=== PATIENT | female | born 1975 | race African-American/Black ===

== ENCOUNTER 2019-11-25 15:04 | Emergency (ER) | payer MEDICAID, SELFPAY ==
[2019-11-25 15:04] VITALS: BP 140/71; PULSE 74; RESP 16; TEMP 36.9; O2SAT 100; BMI 35.4
--- NOTE | 2019-11-25 15:28 | ED.DCSUM_ITS ---
- ER Visit Summary Date of Service: 11/25/19 Chief Complaint: [Back pain] History of Present Illness: The patient is a 44 F [presents to the emergency department complaint of back pain that started about 12 days ago. Patient denies any injury to her back. Patient states that the pain is severe especially in the morning and worse with certain movements. Patient denies any urinary symptoms. She denies any change in bowel bladder function. She denies any pain rating down her legs. She denies any weakness in extremities. Patient has had back pain issues in the past but has never lasted this long. Patient denies any fevers. She denies any IV drug use.] Physical Examination: [HEENT-PERRLA, EOMI. Cranial nerves II through XII grossly intact. TMs clear. Mucous membranes moist. No adenopathy. Cardiovascular-regular rate and rhythm without murmur or ectopy Lungs-clear to auscultation, chest wall stable without crepitus or subcu emphysema Abdomen-normoactive bowel sounds, soft, nontender, no rebound or rigidity, no peritoneal signs. Back exam-patient has diffuse tenderness over the lumbar spine. There is no ecchymosis or bruising. No bony step-offs. There is no erythema or warmth. No crepitus. Patient has negative straight leg raises. Deep tendon reflexes are plus 2 out of 4 bilaterally at the patella and Achilles. Patient has normal 5 extension. Patient has normal sensation to light touch. Extremities-intact ?4, normal range of motion, normal pulses, atraumatic] Test Results: [X-rays of the lumbar spine were obtained which showed stable degenerative changes but no fractures or dislocations.] Emergency Department Course and Treatment: [Patient was medicated with Dilaudid, Norflex, and Toradol] Treatment Plan: [Patient will be given a prescription for Flexeril, Naprosyn, and [place]. Patient referred back to her primary care physician for follow-up within next 5 to 7 days.] Disposition: [Discharged home in stable condition] Impression: [Back pain] This note was generated with [email or web address] dictation software. It may contain incorrect words, spelling, and punctuation that were not noted in review of the chart prior to signing ED Disposition - Plan for ED Patient: Referrals: Kaila Mccarthy MD [Primary Care Provider] -
[2019-11-25] MEDS: Ketorolac 60 MG/2 ML Vial IM (15:35)
[2019-11-25] MEDS: Orphenadrine 60 MG/2 ML Ampul IM (15:35)
[2019-11-25] MEDS: HYDROmorphone 1 MG/ML Syringe IM (15:36)
--- NOTE | 2019-11-25 15:45 | RAD_ITS ---
STUDY: X-RAY - LUMBAR SPINE REASON FOR EXAM: Female, 44 years old. Pain TECHNIQUE: 3 view(s) of the lumbar spine were obtained. COMPARISON: None FINDINGS: There is no evidence of fracture or dislocation in the lumbar spine. The vertebral body heights are well-maintained. There are moderate degenerative changes in the lower lumbar spine which are stable when compared with the abdominal CT dated 10/03/2017. RAD/Lumbar Spine 2 or 3 Views IMPRESSION: No fracture or dislocation in the lumbar spine. Moderate degenerative changes in the lower lumbar spine which are stable when compared with the abdominal CT dated 10/03/2017. Electronically Signed: Elbert Manuel, at 16:08 EST Tel , Service support ,
--- NOTE | 2019-11-25 16:27 | DCINST.ED_ITS ---
ED Disposition - Plan for ED Patient: Instructions: BACK SPASM, No Trauma, BACK AND NECK PAIN, General Prescriptions: cycloBENZAPRine HCl [Flexeril] 10 mg PO TID PRN #20 tab PRN Reason: Muscle Spasm Transmission Status: Pending to [facility] [address] Naproxen [Naprosyn] 500 mg PO BID PRN #20 tab Transmission Status: Pending to [facility] [address] Hydrocodone Bitart/Apap 5-325 [[place] 5MG-325MG] 1 tablet PO Q4H PRN PRN 2 Days #14 tablet PRN Reason: Pain Transmission Status: Received by [facility] SCHNE[facility] Referrals: Kaila Mccarthy MD [Primary Care Provider] - 5-7 Days
[2019-11-25 16:35] VITALS: BP 104/90; PULSE 63
== END 2019-11-25 16:37 | disposition home or self-care (01) ==
LOC: ED 15:41
PROVIDERS: Emergency Provider Emergency Medicine; Family Provider Internal Medicine; PCP Internal Medicine
DX: M54.5 Low back pain (principal); Z72.0 Tobacco use
CPT/HCPCS: 72100; 96372; 99282

== ENCOUNTER 2019-12-27 05:25 | Day surgery (SDC) | payer MEDICAID, SELFPAY ==
--- NOTE | 2019-12-26 11:58 | HP.PCM_ITS ---
History and Physical Date of Admission: 12/26/19 Donna Woodsonntosh Physician OFFICE SERVICES CLERK H&P Signed Encounter Date: 12/18/2019 Expand All Collapse All Hide copied text Hover for details Template added by Donna Neyrobertt Elias at 12/18/2019 12:08 PM Added by Donna Neyrobertt Elias at 12/18/2019 12:08 PM Template added by Donna Sextonyrobertt Elias at 12/18/2019 12:08 PM Template added by Donna Neyrobertt Elias at 12/18/2019 12:08 PM Template added by Donna Neyrobertt Elias at 12/18/2019 12:08 PM Template added by Donna Sextonyrobertt Elias at 12/18/2019 12:08 PM Template added by Donna Neyrobertt Elias at 12/18/2019 12:08 PM Template added by Donna Sextonyrobertt Elias at 12/18/2019 12:08 PM Added by Donna Neyrobertt Elias at 12/18/2019 12:08 PM Added by Donna Neyrobertt Elias at 12/18/2019 12:08 PM Added by Donna Neyrobertt Elias at 12/18/2019 12:08 PM Added by Donna Neyrobertt Elias at 12/18/2019 12:08 PM Template added by Donna Neyrobertt Elias at 12/18/2019 12:08 PM Added by Donna Neyhart Elias at 12/18/2019 12:08 PM Added by Donna Neyhart Elias at 12/18/2019 12:08 PM Added by Donna Neyhart Elias at 12/18/2019 12:08 PM Added by Donna Neyhart Elias at 12/18/2019 12:08 PM Added by Donna Neyhart Elias at 12/18/2019 12:08 PM Added by Donna Neyrobertt Elias at 12/18/2019 12:08 PM Added by Donna Neyrobertt Elias at 12/18/2019 12:08 PM Added by Donna Elias at 12/18/2019 12:08 PM Copied by Donna Elias at 12/18/2019 12:13 PM from inside the chart Template added by Donna Elias at 12/18/2019 12:08 PM Template added by Donna Elias at 12/18/2019 12:08 PM Savi Guo is a 44 year old female who presents for?Chronic Pelvic pain, AUB, suspect adenomyosis s/p Ablation and tubal ligation. Pt reports pain is severe, and lately bleeding has become longer and more irregular. Bleeding now for 7+days and severe pelvic cramping/lower back pain. Pt would like to proceed with TLH, b/l salpingectomy, cystoscopy.? ? PAST MEDICAL HISTORY PAST MEDICAL HISTORY Diagnosis Date ? Anemia ? ? Anxiety ? ? Depression ? ? Encounter for insertion or removal of intrauterine contraceptive device 02/24/2009 ? Mirena INSERTION AND REMOVAL ? Tobacco use disorder age 16 ? Tuberculin test reaction 1999 ? CXR negative at [facility], and to date (through 2003) ? PAST SURGICAL HISTORY PAST SURGICAL HISTORY Procedure Laterality Date ? D&C AFTER DELIVERY ? 2003 ? EAb at 12 weeks ? D&C, DIAG AND/OR THERAPEUTIC ? age 16 ? SAb at 5months ? EXTRACTION, ERUPTED TOOTH OR EXPOSED ROOT (ELEVATION AND/OR FORCEPS REMOVAL) ? 2006 ? wisdom teeth ? IUD INSERTION (WHEEL TUNER DEPT)_*FL ? 02/24/2009 ? Mirena ? LIGATE FALLOPIAN TUBE ? 2010 ? Tubal ligation ? NOVASURE ? 07/13/2016 ? REMOVAL OF TONSILS,<12 Y/O ? age 7 ? Tonsillectomy ? REMOVE INTRAUTERINE DEVICE ? 07/10/2009 ? Mirena ? FAMILY HISTORY FAMILY HISTORY Problem Relation Age of Onset ? Arthritis Mother ? ? Hypertension Maternal Grandmother ? ? Diabetes Maternal Grandmother ? ? Diabetes Maternal Uncle ? ? SOCIAL HISTORY Social History ? Tobacco Use ? Smoking status: Current Every Day Smoker ? ? Years: 15.00 ? ? Types: Cigars ? Smokeless tobacco: Never Used ? Tobacco comment: smokes 2-3 cigars daily Substance Use Topics ? Alcohol use: Yes ? ? Comment: Occasionally ?(few times a month),NOT WHILE ? Drug use: No ? CURRENT MEDICATIONS Current Outpatient Medications Medication Sig ? cyclobenzaprine (FLEXERIL) 5 mg tablet take 1 tablet by mouth three times a day if needed ? ibuprofen (MOTRIN) 600 mg tablet Take 1 tablet by mouth every 6 hours as needed. FOR PAIN. ? albuterol HFA (PROAIR HFA) 90 mcg/actuation inhaler Inhale 2 Puffs as instructed every 6 hours as needed. ? ferrous sulfate 325 mg (65 mg iron) tablet Take 1 tablet by mouth twice daily with meals. ? folic acid 400 mcg tablet Take 1 tablet by mouth once daily. ? cholecalciferol, Vitamin D3, (VITAMIN D3) 50,000 unit cap capsule Take 1 capsule by mouth once each week. ? VITAMIN E, DL,TOCOPHERYL ACET, (VITAMIN E, DL, ACETATE,) 400 unit capsule Take 400 Units by mouth once daily. ? Ascorbic Acid (VITAMIN C) powd Take 1 teaspoonful by mouth once daily. ? DOC-Q-LACE 100 mg capsule take 1 capsule by mouth twice a day ? HYDROXYZINE HCL ORAL Take ?by mouth. ? Hawwyxzwzojatmf-Rezyldzaz-IY (BROMFED DM) 2-30-10 mg/5 mL syrup Take 10 mL by mouth four times daily as needed. (Patient not taking: Reported on 11/20/2019 ) ? tolterodine ER (DETROL LA) 4 mg 24 hr capsule Take 1 capsule by mouth once daily. (Patient not taking: Reported on 11/20/2019 ) ? fluticasone (FLONASE) 50 mcg/actuation nasal spray Use 2 Sprays in each nostril once daily. Rinse mouth after use. ? ibuprofen (MOTRIN) 600 mg tablet Take 1 tablet by mouth every 6 hours as needed for Pain. (Patient not taking: Reported on 11/20/2019 ) ? gabapentin (NEURONTIN) 300 mg capsule Take 1 capsule by mouth daily at bedtime for 30 days. ? MULTIVITAMIN ORAL Take 1 tablet by mouth once daily. ? lamoTRIgine (LAMICTAL) 100 mg tablet Take 1 tablet by mouth once daily. (Patient not taking: Reported on 11/20/2019 ) ? No current facility-administered medications for this visit.? ? Allergies As of Date: 12/18/2019 Allergen ?Noted ?Reaction MORPHINE ?01/13/2010 ?Shortness of Breath SEASONAL ALLERGIES ?01/13/2010 ? ? Fully Assessed ?12/18/2019 ? ? REVIEW OF SYSTEMS Abdomen:?+ pain? Bladder:?no dyusira?.. Expanded ROS:?GENERAL:?Negative for?fever Allergies and current medication updated:Yes ? EXAM:?BP 118/80 Ht 5' 6 (1.68m) Wt 220 lb (99.8kg) BMI 35.53 kg/(m^2).? GENERAL:?pleasant,??female in no apparent distress HEENT:?Normocephalic, atraumatic, mucus membranes moist and no lesions NECK:?Supple and full range of motion DERMATOLOGY:?Normal and without lesions NEURO:?alert and oriented x3,exam grossly non-focal EXTREMITIES:?normal ? Report Summary: Overall impression: The uterus is bulky appearing, which is a non-specific finding. There is a 2 cm intramural fibroid present. The endometrial thickness measures 7.3 mm, and there is a possible polyp present. Bilateral ovaries are normal appearing. There is no free fluid in the pelvic CDS. Recommendations / therapy: Bulky appearing uterus. Possible endometrial polyp. Clinical correlation recommended. Indication: Abnormal Uterine Bleeding. History: Last menstrual period: 10/23/2019. 31th day of cycle. Gynecological History: Past gynecological operations: ablation 2015. Gynecological Ultrasonography: Uterus: normal, retroverted. Size: Longitudinal 82 mm. Anterio- posterior 64 mm. Transverse 69 mm. Volume: 189.6 ml. ? Myometrium: The following features were observed in the myometrium suggestive of adenomyosis. Fibroids: Fibroid 1: Size: 24 mm x 23 mm x 23 mm. Position: left lateral wall. Endometrium: endometrium clearly visualized. Endometrium thickness total: 7.3 mm. Endometrial polyps: 14 mm x 7 mm x 7 mm. Right Ovary: normal. Visible. Morphology: normal morphology. Right Ovary size: 19 mm x 14 mm x 16 mm. Volume: 2.2 ml. Left Ovary: normal. Visible. Morphology: normal morphology. Left Ovary size: 25 mm x 22 mm x 19 mm. Volume: 5.5 ml. Cul de Sac / Pouch of Shad: no free fluid visible. Method: transvaginal ultrasound, color Doppler, 2 D, 3 D. Performed by:Debora Peralta RDMS Read by:Viktoriya Marino M.D. ? ASSESSMENT AND PLAN:?? Encounter Diagnosis ? ? ICD-10-CM ? 1. Abnormal uterine bleeding (AUB) N93.9 ? 2. Chronic pelvic pain in female R10.2 ? ? G89.29 ? 3. Adenomyosis N80.0 ? ? 4.?Pt has been counseled on risks/benefits and alternatives of surgery including but not limited to anesthesia, bleeding, infection, injury to pelvic structures including bowel, bladder, ureters and vessels. ?Pt wishes to proceed with surgery at this time. ? 5. Reviewed with patient that possible pelvic pain/lower back pain may persist after surgery however I feel it is strongly associated with uterus- I suspect adenomyosis 6. Previous tubal and Ablation performed7. ERAS protocol reviewed- will likely stay over until Tuesday based on patient preference.? ? Donna Arreguin MD ?
[2019-12-27] VITALS (15 sets, daily range): BP systolic 105–133; BP diastolic 59–83; PULSE 46–83; RESP 16–18; TEMP 35.7–36.8; O2SAT 98–100; BMI 35.8; BMI 35.6
[2019-12-27 06:04] LABS: Hematocrit 38.8 % (37-47); Hemoglobin 12.8 g/dL (12.0-15.0); Mean Corpuscular Hgb 29.6 pg (27.0-32.0); Mean Corpuscular Volume 89.8 fL (81-99); Mean Platelet Vol. 8.4 fl (6.2-12.0); Platelet Count 339 K/mm3 (150-450); RBC Distribution Width CV 12.5 % (11.6-14.6); RBC Distribution Width SD 41.3 fl (35.1-43.9); Red Blood Count 4.32 M/mm3 (4.2-5.4); White Blood Count 4.7 K/mm3 (4.4-11.0)
[2019-12-27 06:05] LABS: Internal QC Validated? YES +Cl - CLEAR BKGD; Pregnancy, Urine Negative Negative
[2019-12-27 06:07] LABS: Magnesium 2.2 mg/dL (1.6-2.6)
[2019-12-27] MEDS: Lactated Ringers 1,000 ML 40 ML IV ×2 (06:15→08:00)
[2019-12-27] MEDS: dexAMETHasone 10 MG/ML Vial 8 MG IV (06:16)
[2019-12-27] MEDS: Enoxaparin 40 MG/0.4 ML Syringe SC (06:17)
[2019-12-27] MEDS: Acetaminophen 500 MG Tablet 1000 MG PO ×3 (06:19→23:44)
[2019-12-27] MEDS: Scopolamine 1mg/72hr Patch 1 PATCH TRANSDERM. (06:20)
[2019-12-27] MEDS: Gabapentin 600 MG Tablet PO (06:20)
[2019-12-27] MEDS: Phenazopyridine 95 MG Tablet 190 MG PO (06:20)
[2019-12-27] MEDS: Celecoxib 200 MG Capsule 400 MG PO (06:20)
[2019-12-27 06:26] LABS: Bedside Glucose 84 mg/dL (70-110)
[2019-12-27] MEDS: Magnesium Sulfate 4gm/100mL 4 GM/100 ML IV.SOLN. IV (06:31)
--- NOTE | 2019-12-27 07:30 | HYST_PTH ---
PATIENT: KAI YANES LOC: [facility] [place]#:[id number] AGE/SX: 44/F ROOM: RE12/27/[address]: Dr. Donna Arreguin, MDDOB: 1975 BED: DIS: 12/28/2019 SPEC #: [id number] RECD: 12/27/19 13:24 STATUS: YOLANDE RAMAKRISHNA #: [id number] OUMAR: 12/27/19 07:[address]: Donna Arreguin DEPT: SURGICAL PATHOLOGY RECD BY: Brian Rutherford ENTERED: 12/27/19 13:57 SP TYPE: HYSTERECT OTHR DR: Dr. Kaila Mccarthy MD Tissues: Uterus, NOS Procedures: Surgery Specimen Level V HEADER OPERATION: ERAS, hysterectomy, LAVH, salpingectomy, cysto PRE-OP DIAGNOSIS: Abnormal uterine bleeding; chronic pelvic pain; adenomyosis TISSUE SUBMITTED: Uterus, cervix, uterine fibroid and bilateral fallopian tubes MICROSCOPIC DIAGNOSIS Uterus, hysterectomy: Cervix - nabothian cysts, squamous metaplasia and mild chronic inflammation. Endometrium - proliferative endometrium. Myometrium - leiomyomas and adenomyosis. Right fallopian tube - no pathologic change. Left fallopian tube - no pathologic change. AM:munir 12/28/19 MICROSCOPIC DESCRIPTION Slides are reviewed. GROSS DESCRIPTION Received in fixative is one container labeled with the patient's name and designated uterus. The specimen consists of a uterus with attached cervix, two detached fallopian tubes and two rubbery fragments of valero-white tissue. The uterus with cervix measures 9 x 6 x 6 cm and weighs 143 gm. The anterior surface is disrupted. The ectocervix is grossly unremarkable. The endocervical canal measures 3 cm in length and is grossly unremarkable. The endometrial cavity is elongated measuring 4 cm in length and 1.5 cm in greatest width. The endometrium is light valero, velvety and glistening and measures up to 0.1 cm in thickness. The myometrium measures 2 cm in average thickness and is distorted by several rubbery, valero-white nodules ranging in size from 1 to 2.5 cm in greatest dimension including rubbery nodules free in container. The fallopian tubes free in container are similar in appearance and contain Filshie clips that are intact. Both fallopian tubes have normal fimbriated ends. Market Research Assistant sections are submitted in ten cassettes as follows: 1 - anterior cervix, 2 - posterior cervix, 3 & 4 - anterior uterine wall, 5 & 6 - posterior uterine wall, 7 - largest myometrial mass, 8 - smaller myometrial mass, 9??one fallopian tube, 10 - the other fallopian tube. / AM:munir 12/27/19 TC:1 CPT: 53104
[2019-12-27] MEDS: Cefazolin 2 GM in 0.9% Normal Saline 100 ML IV (07:31)
[2019-12-27] MEDS: Lubricating Jelly 60 GM Tube 30 GM TOPICAL (07:59)
[2019-12-27] MEDS: Bupivacaine Mpf 0.5% 30 ML VIAL (08:05)
--- NOTE | 2019-12-27 09:05 | OP.PCM_ITS ---
Report of Operation Pre-Operative Diagnosis: aub, pelvic pain, fibroid uterus, suspect adenomyosis Post-Operative Diagnosis: same, Surgery/Procedure Performed:: LAVH, bilatearl salpingectomy, cystoscopy Description of Surgical Findings:: normal tubes and ovaries bilaterally- small simple appearing cyst on right ovary. bilateral filshie clips removed. registered nurse surgical services: Kandi Ryan Type of Anesthesia:: General Special Medications: .5%maracine Specimen's removed: uterus, cervix, bilateral tubes Drains: none Estimated Blood Loss (mL): 30 Fluids Replaced: 1500 Description of Procedure: Patient take to OR and prepped and draped in usual sterile fashion in dorsal li thotomy position with her arms tucked in a neurologically safe and neutral position. The uterus sounded to 8cm. The Orate uterine manipulator and cantu were placed. Attention was turned to the abdomen. All port sites were infiltrated with .5% MARCAINE before the incisions were made. The anterior abdominal wall was tented up with towel clamps and using a direct entry approach a 5 mm intraumbilical port was placed. Intraperitoneal placement was confirmed with the laparoscope and the pneumoperitoneum was created. The patient was placed in Trendelenburg and 5 mm right and left lower quadrant ports were placed under direct visualization. The bowel was swept away. Ovaries appeared normal. The mesosalpinx starting at fibriated end were grasped, clamped, sealed and transected with the Ligasure. The round ligaments were divided. The anterior peritoneum was dissected down to create the bladder flap with blunt dissection and the LigaSure. The uterine arteries were isolated, clamped, sealed and cut. There was minimal back bleeding from the uterus. Attention was turned to the vaginal portion of the case. The anterior vagina was infiltrated w/ lidocaine with dilute epinephrine. An incision was made over the anterior vagina and the anterior colpotomy incision was made with blunt and sharp dissection. The lower vagina was clamped, transected and suture ligated. A second pedicle containing the peritoneum was secured with Darrell clamps, cut and suture ligated. The uterus was brought through the anterior colpotomy incision and the uterosacral ligaments were clamped, cut and suture ligated. The pedicles were examined and were suture ligated. The specimen was handed off. The cuff was closed with interrupted 0-vicryl figure of 8 sutures. The pneumoperitoneum was recreated and the cuff and pedicles were hemostatic. The ureters were both seen and peristalsing. The skin incisions were closed with skin glue and 3-0 monocryl. The vaginal sweep was completed by me. CYSTOSCOPY performed- both ureteral jets noted and bladder intact. Grafts/Implants Used: none Grafts/Implants Used: none - Complications none - Admit VTE Documentation VTE Present on Admission: Yes VTE Mechan Device Prophylaxis: SCD's VTE Pharm Prophylaxis ordered?: Yes
--- NOTE | 2019-12-27 09:18 | DCINST_ITS ---
Discharge Diet: No Restrictions Discharge Activity: Return to Normal Activity, May Not Drive - while taking narcotic pain medications., May Shower May resume sexual activity in: 6-8 weeks Call your doctor if your incision/area has: Continuous Slow Oozing, Sudden Increased Bleeding, Increased Pain/ Swelling, Increased Redness, Foul Smelling Discharge Call your doctor if you observe: Fever of 101 or Higher, Inability to urinate, Inability to have a bowel movement, Using more than one pad per hour Cleanse incision/area with: - - you have skin glue- do not pick off. let soap and water run over incision sites and dab dry. Allergies/Adverse Reactions: Allergies morphine Allergy (Verified 12/27/19 05:58) Shortness of breath Medications to take at Discharge Cyclobenzaprine HCl 5 mg PO TID PRN 11/25/19 cycloBENZAPRine HCl [Flexeril] 10 mg PO TID PRN #20 tab 11/25/19 Ascorbic Acid [Vitamin C] 1,000 mg PO DAILY 12/20/19 Cyanocobalamin (Vitamin B-12) [Vitamin B-12] 1,000 mcg PO DAILY 12/20/19 Folic Acid 0.4 mg PO DAILY@0800 12/20/19 Acetaminophen [Tylenol] 1,000 mg PO Q6 #60 tab 12/27/19 Docusate Sodium [Colace] 100 mg PO BID #30 cap 12/27/19 Ibuprofen 600 mg PO TID PRN #60 tab 12/27/19 Oxycodone [Oxyir] 5 - 10 mg PO Q4H PRN PRN 5 Days #10 tab 12/27/19 The following prescriptions were given: Docusate Sodium [Colace] 100 mg PO BID #30 cap Transmission Status: Pending to [facility] [place] [address] Ibuprofen 600 mg PO TID PRN #60 tab PRN Reason: Pain Transmission Status: Pending to [address] Oxycodone [Oxyir] 5 - 10 mg PO Q4H PRN PRN 5 Days #10 tab PRN Reason: Pain Score 4-10/10 Transmission Status: Sent to [address] Acetaminophen [Tylenol] 1,000 mg PO Q6 #60 tab Transmission Status: Pending to [address] Primary Care Physician: Kaila Mccarthy MD [Primary Care Provider] - Test Results: Test results from this visit will be discussed in further detail at your follow- up appointment, if applicable. Please Follow Up With: Donna Arreguin MD When: as scheduled 2 weeks
[2019-12-27] MEDS: Ketorolac 30 MG/ML Syringe IV ×3 (10:20→21:42)
[2019-12-27] MEDS: oxyCODONE 5 MG Tablet PO ×2 (13:55→19:34)
[2019-12-27 14:43] LABS: Hematocrit 39.7 % (37-47); Hemoglobin 12.9 g/dL (12.0-15.0); Mean Corp Hgb Conc 32.5 g/dL (32-36); Mean Corpuscular Hgb 29.7 pg (27.0-32.0); Mean Corpuscular Volume 91.5 fL (81-99); Mean Platelet Vol. 8.6 fl (6.2-12.0); Platelet Count 339 K/mm3 (150-450); RBC Distribution Width CV 12.7 % (11.6-14.6); RBC Distribution Width SD 42.5 fl (35.1-43.9); Red Blood Count 4.34 M/mm3 (4.2-5.4); White Blood Count 8.3 K/mm3 (4.4-11.0)
[2019-12-27] MEDS: Lactated Ringers 1,000 ML 70 ML IV (15:15)
[2019-12-27] MEDS: Docusate Sodium 100 MG Capsule PO (21:38)
[2019-12-28] MEDS: Lactated Ringers 1,000 ML 70 ML IV (04:31)
[2019-12-28 04:32] VITALS: BP 112/62; PULSE 72; RESP 17; TEMP 36.9; O2SAT 99
[2019-12-28] MEDS: Ketorolac 30 MG/ML Syringe IV ×2 (04:33→10:28)
[2019-12-28] MEDS: Acetaminophen 500 MG Tablet 1000 MG PO (06:01)
[2019-12-28 07:54] VITALS: O2SAT 95
--- NOTE | 2019-12-28 07:57 | PN.OBGYN_ITS ---
Subjective: Patient seen at bedside, doing well. Patient reports good pain control. Scant spotting on rena-pad. Voiding without difficulty. Passing flatus. Tolerating regular diet. Denies any chest pain, shortness of breath, dizziness. - Physical Exam Vitals/I&O's: Vital Signs Temp Pulse Resp BP Pulse Ox 98.4 F 72 17 112/62 95 12/28/19 04:32 12/28/19 04:32 12/28/19 04:32 12/28/19 04:32 12/28/19 07:54 Oxygen Flow Rate (L/min) 6 Oxygen Delivery Method Room Air Weight: 100.244 kg Body Mass Index (BMI) 35.6 Intake and Output for Last 24 Hours 12/26/19 12/27/19 12/28/19 23:59 23:59 23:59 Intake Total 3364.34 / 3364.34 1528.67 / 1528.67 Output Total 1800 / 1800 800 / 800 Balance 1564.34 / 1564.34 728.67 / 728.67 General: Alert, Oriented x3 Abdomen: Soft, Non-Distended, Passing Flatus, - - incision sites dry and intact Extremities: No Calf Tenderness Laboratory Results 12/27/19 14:11: WBC 8.3, RBC 4.34, Hgb 12.9, Hct 39.7, MCV 91.5, MCH 29.7, MCHC 32.5, RDW Std Deviation 42.5, RDW Coeff of Nimisha 12.7, Plt Count 339, MPV 8.6 Current Medications Acetaminophen (Tylenol) 1,000 mg PO Q6 [facility] Last Admin: 12/28/19 06:01 Dose: 1,000 mg Documented by: Docusate Sodium (Colace) 100 mg PO BID [facility] Last Admin: 12/27/19 21:38 Dose: 100 mg Documented by: Lactated Ringer's () 1,000 mls @ 70 mls/hr IV .[id number] [facility] Stop: 12/28/19 09:16 Last Admin: 12/28/19 04:31 Dose: 70 mls/hr Documented by: Ketorolac Tromethamine (Toradol (Bkc)) 30 mg IV Q6H [facility] Stop: 12/28/19 16:31 Last Admin: 12/28/19 04:33 Dose: 30 mg Documented by: Magnesium Oxide (Mag-Ox 400) 400 mg PO DAILY PRN PRN PRN Reason: Constipation Nutritional Formula (Lactose Free) (Ensure Enlive) 120 ml PO TIDCM SOPHIA Last Admin: 12/27/19 17:57 Dose: Not Given Documented by: Ondansetron HCl (Zofran Odt) 4 mg PO Q6H PRN PRN PRN Reason: NAUSEA Oxycodone HCl (Oxyir) 5 - 10 mg PO Q4H PRN PRN PRN Reason: Pain Score 4-10/10 Last Admin: 12/27/19 19:34 Dose: 5 mg Documented by: Sodium Chloride () 10 - 40 ml IV UD PRN PRN Reason: SALINE FLUSH Medical Necessity - Tobacco Use Smoking Status: Current every day smoker Tobacco Use: Cigars Assessment/Plan POD#1 s/p LAVH, bilateral salpingectomy, cystoscopy 1) cbc stable from yesterday- minimal blood loss no need for repeat labs this morning 2) continued ambulation 3) dc instructions reviewed with patients 4) dc home today 5) pain mgmt
[2019-12-28 09:00] VITALS: BP 102/63; PULSE 61; RESP 18; TEMP 36.4; O2SAT 99
[2019-12-28] MEDS: oxyCODONE 5 MG Tablet PO (09:01)
[2019-12-28] MEDS: Docusate Sodium 100 MG Capsule PO (09:03)
== END 2019-12-28 11:36 | disposition home or self-care (01) ==
LOC: SDC 05:27 → AC 05:27 → MS3 10:25
PROVIDERS: Anesthesiology; PCP Internal Medicine; Referring Provider Obstetrics & Gynecology; Visit Provider Obstetrics & Gynecology
PROC: 0UT94ZZ Resection of Uterus, Percutaneous Endoscopic Approach (ICD-10-PCS; CPT 58552; principal; 2019-12-27 07:05)
DX: N93.9 Abnormal uterine and vaginal bleeding, unspecified (principal); N80.0 Endometriosis of uterus; N88.8 Other specified noninflammatory disorders of cervix uteri; N72 Inflammatory disease of cervix uteri; D25.1 Intramural leiomyoma of uterus; R10.2 Pelvic and perineal pain; G89.29 Other chronic pain; D64.9 Anemia, unspecified; F32.9 Major depressive disorder, single episode, unspecified; F41.9 Anxiety disorder, unspecified; F17.290 Nicotine dependence, other tobacco product, uncomplicated
CPT/HCPCS: 00840; 58552; 36415; 81025; 82962; 83735; 85027; 86850; 86900; 86901; 88307; 99406; J7120

== ENCOUNTER 2020-08-10 17:27 | Emergency (ER) | payer MEDICAID, SELFPAY ==
[2019-12-27 11:20] VITALS: BMI 35.6
[2020-08-10 17:31] VITALS: BP 162/102; PULSE 76; RESP 18; TEMP 36.4; O2SAT 100; BMI 37.1
--- NOTE | 2020-08-10 18:05 | ED.VISSUMM ---
- ER Visit Summary Date of Service: 08/10/20 Chief Complaint: Dental pain History of Present Illness: The patient is a [address] Reed. She reports that she has left mandibular first molar pain that began 3 days ago. She saw her dentist and was placed on ibuprofen and penicillin. However, she reports she continues to have a sharp, aching pain is 10 of 10 severity. Is worsened by eating. Is relieved by nothing. She reports that she has a little jaw swelling. She denies any fever or chills. Physical Examination: Vitals: Stable. Afebrile. Mouth: No trismus. No edema of the floor of the mouth. Pain with percussion of first mandibular molar on the left. There is no focal abscess. There is widespread dental decay. General: A&O x 3. NAD. Cardiovascular exam: Regular rate and rhythm, no murmur, rub or gallop. Respiratory exam: Clear to auscultation bilaterally. No wheezes or stridor. Abdominal exam: Soft, nontender, nondistended, normal bowel sounds. No peritoneal signs. Extremity: No clubbing, cyanosis, or edema. Emergency Department Course and Treatment: An [facility] report was obtained which shows she is had 2 prescriptions for opiates in the past year. She is given a dose of [place] here. Treatment Plan: Patient will be discharged with [place]. Instructed to continue the penicillin and ibuprofen. Instructed to follow-up with her dentist in 3 to 5 days for another exam. Return to the emergency department for any worsening symptoms. Disposition: To home in improved and stable condition. Impression: 1. Dental pain. This note was generated with [email or web address] dictation software. It may contain incorrect words, spelling, and punctuation that were not noted in review of the chart prior to signing ED Disposition - Plan for ED Patient: Instructions: ED Tooth Pain Prescriptions: Hydrocodone Bitart/Apap 5-325 [[place] 5MG-325MG] 1 tablet PO Q4H PRN PRN 2 Days #10 tablet PRN Reason: Pain Referrals: Dentist,Your [STAFF PHYSICIAN] - As soon as possible
[2020-08-10] MEDS: HYDROcodone Bitartrate/Apap 5/325 Tablet PO (18:09)
== END 2020-08-10 18:19 | disposition home or self-care (01) ==
LOC: ED 18:17
PROVIDERS: Emergency Provider Emergency Medicine; PCP Internal Medicine
DX: K08.89 Other specified disorders of teeth and supporting structures (principal); Z72.0 Tobacco use
CPT/HCPCS: 99283

== ENCOUNTER 2020-08-11 23:18 | Emergency (ER) | payer MEDICAID, SELFPAY ==
[2020-08-10 17:31] VITALS: BMI 37.1
[2020-08-11 23:19] VITALS: BP 138/96; PULSE 83; RESP 15; TEMP 36.6; O2SAT 98; BMI 37.5
--- NOTE | 2020-08-11 23:35 | ED.VISSUMM ---
- ER Visit Summary Date of Service: 08/11/20 Chief Complaint: Dental pain History of Present Illness: The patient is a 45 F who reports that she has pain in her left mandibular first molar that began last week. She saw her dentist and was placed on penicillin without any relief. She is now been taking that for 4 days. She was seen in emergency department 2 days after starting the penicillin and there was no focal abscess so she was instructed to continue to penicillin placed on [place]. Patient reports that she has facial swelling that began today. She complains of a dull pain is 10 of 10 severity. Is worsened by eating. Is relieved by ibuprofen, Tylenol, and [place]. She does have cold sensitivity. Patient denies any constitutional symptoms. No fever, chills, nausea, vomiting, sore throat, or other complaints. Physical Examination: Vitals: Stable. Afebrile. Mouth: No trismus. No edema of the floor of the mouth. Pain with percussion of left mandibular first molar. There is no focal abscess. However, she does have swelling to the left mandible. This does not extend into the neck. General: A&O x 3. NAD. Cardiovascular exam: Regular rate and rhythm, no murmur, rub or gallop. Respiratory exam: Clear to auscultation bilaterally. No wheezes or stridor. Abdominal exam: Soft, nontender, nondistended, normal bowel sounds. No peritoneal signs. Extremity: No clubbing, cyanosis, or edema. Emergency Department Course and Treatment: Had a prolonged discussion the patient at this time there still is no focal abscess that is amenable to drainage. However, after 4 days of penicillin should be changed to clindamycin and given a first dose in the emergency department. She still has [place] at home. Treatment Plan: Patient is instructed to continue the [place], ibuprofen, Tylenol. Changed to clindamycin. She reports that [facility] She is instructed to return for any worsening symptoms. Disposition: To home in improved and stable condition. Impression: 1. Dental abscess. This note was generated with [employer] software. It may contain incorrect words, spelling, and punctuation that were not noted in review of the chart prior to signing ED Disposition - Plan for ED Patient: Instructions: Dental Abscess Prescriptions: Clindamycin HCl [Cleocin] 300 mg PO Q6H #40 capsule Referrals: Destiney Delatorre [NON-STAFF] - 2 Days
[2020-08-11] MEDS: Clindamycin HCl 150 MG Capsule 300 MG PO (23:42)
[2020-08-11 23:44] VITALS: BP 144/78; PULSE 71; RESP 18; O2SAT 99
== END 2020-08-11 23:44 | disposition home or self-care (01) ==
LOC: ED 23:42
PROVIDERS: Emergency Provider Emergency Medicine; PCP Internal Medicine
DX: K04.7 Periapical abscess without sinus (principal); F17.210 Nicotine dependence, cigarettes, uncomplicated
CPT/HCPCS: 99283

== ENCOUNTER 2020-11-05 20:30 | Emergency (ER) | payer MEDICAID, SELFPAY ==
[2020-11-05 20:31] VITALS: BP 155/107; PULSE 70; RESP 18; TEMP 35.9; O2SAT 100; BMI 37.4
--- NOTE | 2020-11-05 20:55 | ED.VISSUMM ---
- ER Visit Summary Date of Service: 11/05/20 Chief Complaint: Chest pain and shortness of breath History of Present Illness: The patient is a 45 F who presents with chest pain and shortness of breath that has been getting worse over the past 5 days. Patient states it waxes and wanes. Patient states it feels like a tightness. Patient states nothing seems to make it worse. Patient states that her breathing gets better with albuterol inhaler. Patient admits to some nausea but denies any vomiting. Patient denies any cough or fevers. Patient did test positive for COVID-19 on 10/25/2020. Patient denies any cardiac or PE risk factors other than smoking. Physical Examination: Vital signs are stable. Patient is afebrile. Patient is in no acute distress. Oral mucosa is pink and moist. Neck is supple. Trachea is midline. There is no JVD noted. Heart was regular rate and rhythm. Lungs are clear and equal bilaterally. Abdomen is soft. Bowel sounds are normal. There is no tenderness. There is no rebound or guarding noted. Skin is warm dry. Cranial nerves II through XII are intact. There are no focal motor or sensory deficits noted. Extremities are intact. There is no calf tenderness or edema. Test Results: Portable 1 view chest x-ray was obtained. On my interpretation, lung alanis are clear. There is normal cardiac silhouette. Bony thorax is normal. There is no acute process noted. Radiologist also interpreted the x-ray and agrees. CBC, comprehensive metabolic profile, and lactate were obtained and were all within normal limits. Emergency Department Course and Treatment: Patient has a HEART score of 1. Patient was advised that this is low risk for acute cardiac event. Patient was instructed to continue Tylenol and ibuprofen as needed for any pain or fevers. Patient was instructed to follow-up with her primary care physician in 5 to 7 days. Patient does not meet criteria for monoclonal antibody therapy. Patient was instructed to continue her albuterol inhaler as needed. Patient understood and was agreeable with the plan. All questions were answered. Disposition: Discharge home Impression: 1. COVID-19 This note was generated with [employer] software. It may contain incorrect words, spelling, and punctuation that were not noted in review of the chart prior to signing ED Disposition - Plan for ED Patient: Disposition: Home or Assisted Living Diagnosis: COVID-19 Instructions: Coronavirus Disease 2019 (COVID-19): Overview, Coronavirus Disease 2019 (COVID-19): Caring for Yourself or Others Referrals: Kaila Mccarthy MD [Primary Care Provider] - 3-5 Days
--- NOTE | 2020-11-05 21:05 | RAD_ITS ---
STUDY: X-RAY CHEST REASON FOR EXAM: Female, 45 years old. PT IS COVID POSITIVE ON 10/25, SYMPTOMS STARTED 10/18, HAS HAD CHEST PAIN ON AND OFF FOR THE LAST FEW DAYS, WORSE WITH INSPIRATION. TECHNIQUE: AP portable COMPARISON: None. FINDINGS: Less than optimal inspiratory effort is seen however the lungs are clear.. There is no demonstrated pleural abnormality. Normal size heart. Normal mediastinum and sean. Normal visualized pulmonary arteries. Normal visualized aortic arch and descending thoracic aorta. Normal visualized thoracic spine. Normal visualized ribs, clavicles, and shoulders. There is no demonstrated abnormality of the visualized soft tissue structures of the upper abdomen. RAD/Chest 1 View (Portable) IMPRESSION: Less than optimal inspiratory effort. No acute cardiopulmonary pathology Electronically Signed: James Hines MD at 21:24 EST , Service support ,
[2020-11-05 21:22] VITALS: BP 136/87; PULSE 66; RESP 21; TEMP 36.9; O2SAT 100
[2020-11-05 21:41] LABS: Absolute Lymphocyte Count 1.39 X10^3/uL (0.83-4.51); Absolute Neutrophil Count 6.5 X10^3/uL (2.0-7.7); Basophil# 0.01 X10^3/uL; Basophil% 0.1 % (0-1); Eosinophil# 0.01 X10^3/uL; Eosinophils% 0.1 % (0-5); Hematocrit 41.3 % (37-47); Hemoglobin 13.8 g/dL (12.0-15.0); Lymphocyte # 1.39 X10^3/ul (4.0); Lymphocyte % 16.9 % (19-41); Mean Corp Hgb Conc 33.4 g/dL (32-36); Mean Corpuscular Volume 89.8 fL (81-99); Mean Platelet Vol. 8.8 fl (6.2-12.0); Monocyte# 0.34 X10^3/uL; Monocyte% 4.1 % (0-10); NRBC Flagged by Analyzer 0 % (0-5); Neutrophil # 6.46 X10^3/uL (2.7-7.7); Neutrophil % 78.4 % (47-70); Platelet Count 481 K/mm3 (150-450); RBC Distribution Width CV 12.9 % (11.6-14.6); RBC Distribution Width SD 42.3 fl (35.1-43.9); White Blood Count 8.2 K/mm3 (4.4-11.0)
[2020-11-05 21:48] LABS: ALB/GLOB Ratio 0.9 RATIO (0.9-2.4); AST(SGOT) 18 U/L (15-37); Alanine Aminotransfer ALT/SGPT 39 U/L (13-56); Albumin, Serum 3.6 g/dL (3.2-5.0); Alkaline Phosphatase 62 U/L (45-117); Anion Gap 7 (5-15); BUN 16 mg/dL (7-18); BUN/Creat Ratio 15.2 RATIO (10-20); Calcium,Total 8.7 mg/dL (8.5-10.1); Chloride 103 mmol/L (98-107); Creatinine, Serum 1.05 mg/dL (0.55-1.02); EST Glomerular Filtration Rate 61 mL/min (>60); Est Glom Filt Rate - Afr Amer 73 mL/min (>60); Estimated Creatinine Clearance 64.67 ml/min; Globulin 4.1 g/dL (2.2-4.2); Glucose 93 mg/dL (74-106); Protein, Total 7.7 g/dL (6.4-8.2); Sodium Level 137 mmol/L (136-145)
[2020-11-05 21:59] LABS: Lactic Acid 1.5 mmol/L (0.4-1.9)
[2020-11-05 22:37] VITALS: BP 118/74; PULSE 64; RESP 16; O2SAT 100
== END 2020-11-05 22:37 | disposition home or self-care (01) ==
PROVIDERS: Emergency Provider Emergency Medicine; PCP Internal Medicine
DX: U07.1 COVID-19 (principal); K21.9 Gastro-esophageal reflux disease without esophagitis; E66.9 Obesity, unspecified; Z68.37 Body mass index [BMI] 37.0-37.9, adult
CPT/HCPCS: 71045; 80053; 83605; 85025; 99284; A4216

== ENCOUNTER 2022-12-04 09:38 | Emergency (ER) | payer MEDICAID, SELFPAY ==
[2022-12-04] VITALS (8 sets, daily range): BP systolic 115–164; BP diastolic 76–134; PULSE 53–66; RESP 13–18; TEMP 36.5; O2SAT 95–100; BMI 37.5
--- NOTE | 2022-12-04 09:56 | ED.VIS.CHEST ---
HPI History of Present Illness Chief Complaint: Chest Pain Informant: patient Onset/Context/Timing Onset: Days (2) Activity at onset: gradual Timing: Continuous Quality: Positive for Tightness Location: Substernal Worsened By: Movement of Torso, Breathing and Coughing Relieved By: Rest Associated Symptoms: Positive for Cough and Acid Reflux; Negative for Nausea, Vomiting, Diaphoresis, Dyspnea, Fever, Lightheadedness or Palpitations Narrative Narrative: Patient presents with chest pain that has been constant for the past 2 days. Patient describes it as a tightness. Patient states it is over the substernal area. Patient states it is worse when she moves certain ways and with deep breathing. Patient states it is better with rest. Patient denies any nausea or vomiting. Patient admits to a recent cough. Patient also admits to some heartburn and reflux. Patient denies any shortness of breath or diaphoresis. Patient is a smoker. Patient denies any other cardiac or PE risk factors. CVD Risk Factors: Positive for Smoking; Negative for Hypertension, Diabetes, Hypercholesterolemia or Family History 1' </=55 PE Risk Factors: Negative for Recent Travel/Surgery, Recent Immobilization, Prior DVT or PE, Cancer or OCP + Smoking + >/=35 PFSH PFSH Medical History no medical history no medical history Home Medications cyclobenzaprine 10 mg tablet 10 mg PO TID PRN Muscle Spasm #20 tabs 11/25/19 [Rx Last Taken Unknown] ascorbic acid (vitamin C) 1,000 mg tablet 1,000 mg PO DAILY 12/20/19 [History Last Taken Unknown] cyanocobalamin (vitamin B-12) 1,000 mcg tablet 1,000 mcg PO DAILY 12/20/19 [History Last Taken Unknown] folic acid 400 mcg tablet 0.4 mg PO DAILY@0800 12/20/19 [History Last Taken Unknown] albuterol sulfate 90 mcg/actuation aerosol inhaler 1 - 2 puff inhalation Q6H PRN PRN Shortness Of Breath 11/05/20 [History Last Taken Unknown] cefdinir 300 mg capsule 300 mg PO DAILY 11/05/20 [History Last Taken Unknown] doxycycline monohydrate 100 mg capsule 100 mg PO BID 11/05/20 [History Last Taken Unknown] methylprednisolone 4 mg tablet 4 mg PO DAILY 11/05/20 [History Last Taken Unknown] omeprazole 40 mg capsule,delayed release 40 mg PO DAILY 11/05/20 [History Last Taken Unknown] Allergy/AdvReac Type Severity Reaction Status Date / Time morphine Allergy Shortness Verified 12/04/22 09:42 of breath Surgical History H/O: hysterectomy Social History Smoking Status: Current some day smoker tobacco type: cigars ROS ROS ED Constitutional Constitutional ED: Reports chills and subjective; Denies fever(s) Eyes Eyes: Denies blurry vision or change in vision ENT ENT ED: Denies rhinorrhea or sore throat Cardiovascular Cardiovascular: Reports chest pain; Denies palpitations Respiratory/Chest Respiratory/Chest: Reports cough; Denies dyspnea Gastrointestinal Gastrointestinal: Reports nausea; Denies abdominal pain or vomiting Genitourinary Genitourinary ED: Denies dysuria or hematuria Musculoskeletal Musculoskeletal: Denies back pain or neck pain Integumentary Denies abscess or rash Neurologic Neurologic: Denies headache(s) or weakness Allergic/Immunologic Allergic/Immunologic ED: Denies mouth swelling or urticaria EXAM Physical Exam Const Vital Signs: 12/04/22 09:43 12/04/22 09:47 12/04/22 09:48 Temperature 97.7 F L Temperature Source Oral Pulse Rate 66 Respiratory Rate 18 Respiratory Effort Normal Non-Labored Blood Pressure 164/134 H 149/90 H Blood Pressure Mean 144 109 Pulse Ox 100 Oxygen Delivery Method Room Air 12/04/22 10:15 12/04/22 10:17 12/04/22 10:20 Temperature Temperature Source Pulse Rate 61 66 Respiratory Rate Respiratory Effort Blood Pressure 137/87 H 146/78 H Blood Pressure Mean Pulse Ox 100 Oxygen Delivery Method Room Air 12/04/22 10:25 12/04/22 10:39 Temperature Temperature Source Pulse Rate 66 63 Respiratory Rate 18 Respiratory Effort Blood Pressure 130/84 H 115/78 Blood Pressure Mean 90 Pulse Ox 100 Oxygen Delivery Method Room Air Positive well nourished, well developed and obese General Appearance ED: well developed and NAD Nutritional Appearance: obese morbidly obese HEENT normocephalic and atraumatic Eyes PERRL and EOMs intact bilaterally Neck supple and no JVD Chest Wall Chest Narrative: There is reproducible tenderness over the sternum. There is no edema or ecchymosis. There is no bony crepitance or step-off. Resp normal respiratory effort and clear to auscultation bilaterally Effort and Inspection: Negative for respiratory distress Cardio regular rate, regular rhythm and no murmurs GI normal to inspection, nondistended, normoactive bowel sounds, soft to palpation, non-tender and non-distended Extremity normal to inspection General Extremety ED: Negative for edema or tenderness General Extremity: Negative for edema Neuro oriented x3, CN's II-XII intact bilaterally and no sensory deficits noted Sensorium / Orientation: awake and alert Motor Exam: strength 5/5 throughout Psych mental status grossly normal Heart Score History: Slightly/Non-Suspicious ECG: Normal Age: </= 45 years Risk Factors: 1 or 2 Risk Factors Troponin: </= Normal Limit Score: 1 MDM MDM MDM Narrative Medical decision making narrative: Patient was given aspirin and sublingual nitroglycerin here. Differential diagnosis includes cardiac ischemia, GERD, pneumonia, and musculoskeletal etiology. Patient is PERC negative so I do not think it is from a pulmonary embolism. We will obtain an EKG to check for cardiac ischemia/infarct/dysrhythmia. We will obtain a CBC to check for leukocytosis and anemia. We will check a basic metabolic profile to check for electrolyte abnormality and renal function. We will obtain a troponin to check for cardiac ischemia. We will check a chest x-ray to check for pneumonia, pneumothorax, and congestive heart failure. Lab Data Lab results narrative: CBC was reviewed and showed a white blood cell count of 3.7. The remainder was within normal limits. Basic metabolic profile was reviewed. Creatinine slightly elevated 1.16. Prior outpatient labs were reviewed. This is consistent with previous results. High-sensitivity troponin was reviewed and was within normal limits. Labs: Laboratory Results - last 24 hr 12/04/22 12/04/22 10:05 10:05 WBC 3.7 L RBC 4.14 L Hgb 12.2 Hct 37.1 MCV 89.6 MCH 29.5 MCHC 32.9 RDW Std Deviation 42.5 RDW Coeff of Nimisha 12.9 Plt Count 384 MPV 8.5 Immature Gran % (Auto) 0.300 Neut % (Auto) 30.5 L Lymph % (Auto) 53.1 H [place] % (Auto) 12.9 H Eos % (Auto) 2.7 Baso % (Auto) 0.5 Absolute Neuts (auto) 1.1 L Absolute Lymphs (auto) 1.98 Nucleated RBC % 0 Sodium 139 Potassium 3.8 Chloride 107 Carbon Dioxide 28.0 Anion Gap 4 L BUN 15 Creatinine 1.16 H Estim Creat Clear Calc 64.00 Est GFR (MDRD) Af Amer 65 Est GFR (MDRD) Non-Af 54 L BUN/Creatinine Ratio 12.9 Glucose 89 Calcium 8.9 Troponin I High Sens 4 Radiography Chest X-Ray - ED: 1 View, Read by ED Physician, Read by Radiologist and No Acute Disease Diagnostic Testing: Clinical Impression(s) from Imaging Studies Chest X-Ray 12/04/22 10:40 IMPRESSION: Normal x-ray examination of the chest. Electronically Signed: Costa Olsen MD at 10:51 EST , Portable 1 view chest x-ray was obtained. On my independent interpretation, lung alanis are clear. There is normal cardiac silhouette. Bony thorax is normal. There is no acute process noted. Radiologist also interpreted the x-ray and agrees. EKG Initial EKG: Attestation: I personally reviewed and interpreted this EKG as follows: Interpretation: Sinus Rhythm (62) and No Acute Injury Pattern Comments: EKG was obtained. On my interpretation, it showed a normal sinus rhythm with a rate of 62. IA interval, QRS interval, and QTc intervals were all normal. [place] was normal. There are no acute ST or T wave changes. Prior EKG tracings: not available for review Prior: No Prior Treatment and Re-Evaluation Narrative: Upon reevaluation, patient is feeling better. Patient was advised of her findings. Patient was advised that this most likely due to musculoskeletal etiology or viral upper respiratory infection. Patient has a HEART score of 1. Patient was advised that this is low risk for acute cardiac event. Patient was instructed to follow-up with her primary care physician in 5 to 7 days for reevaluation. Patient understood and was agreeable with the plan. All questions were answered. Discharge Plan Triage Chief Complaint: Chest Pain ED Provider: Avelino Mercado Dx/Rx/DC Orders Clinical Impression: Chest pain of uncertain etiology, Obesity (BMI 35.0-39.9 without comorbidity), Tobacco use Instructions: ED Chest Pain, Uncertain Cause Prescriptions: No Action cyclobenzaprine 10 MG tablet 10 mg PO TID PRN (Reason: Muscle Spasm) Qty: 20 0RF ascorbic acid (vitamin C) 1,000 MG tablet 1,000 mg PO DAILY cyanocobalamin (vitamin B-12) 1,000 MCG tablet 1,000 mcg PO DAILY folic acid 0.4 MG tablet 0.4 mg PO DAILY@0800 methylprednisolone 4 MG tablet 4 mg PO DAILY omeprazole 40 MG capsule,delayed release(DR/EC) 40 mg PO DAILY doxycycline monohydrate 100 MG capsule 100 mg PO BID albuterol sulfate 1 INHALER inhaler 1 - 2 puff INHALATION Q6H PRN PRN (Reason: Shortness Of Breath) cefdinir 300 MG capsule 300 mg PO DAILY Primary Care Provider: Kaila Mccarthy Referrals: Kaila Mccarthy MD [Primary Care Provider] - 5-7 Days Disposition Disposition: Home, Self Care
--- NOTE | 2022-12-04 10:06 | EKG12_ITS ---
Test Reason : CP Blood Pressure : / mmHG Vent. Rate : 062 BPM Atrial Rate : 062 BPM P-R Int : 146 ms QRS Dur : 086 ms QT Int : 386 ms P-R-T Axes : 067 026 019 degrees QTc Int : 391 ms Normal sinus rhythm Normal ECG Confirmed by HETAL BIGGS, MARIE ([id number]), electronic news gathering editor BETO LEÓN ([id number]) on 12/06/2022 10:43:10 AM Referred By: SHERRIE Confirmed By:MARIE FONG MD
[2022-12-04] MEDS: Nitroglycerin SL (ED/IMG/CATH) 0.4 MG TABLET SL ×3 (10:15→10:25)
[2022-12-04] MEDS: Aspirin 81 MG TAB.CHEW 324 MG PO (10:15)
[2022-12-04 10:19] LABS: Absolute Lymphocyte Count 1.98 X10^3/uL (0.83-4.51); Absolute Neutrophil Count 1.1 X10^3/uL (2.0-7.7); Basophil# 0.02 X10^3/uL; Basophil% 0.5 % (0-1); Eosinophils% 2.7 % (0-5); Hematocrit 37.1 % (37-47); Hemoglobin 12.2 g/dL (12.0-15.0); Lymphocyte # 1.98 X10^3/ul (0.83-4.51); Lymphocyte % 53.1 % (19-41); Mean Corp Hgb Conc 32.9 g/dL (32-36); Mean Corpuscular Hgb 29.5 pg (27.0-32.0); Mean Corpuscular Volume 89.6 fL (81-99); Mean Platelet Vol. 8.5 fl (6.2-12.0); Monocyte# 0.48 X10^3/uL; Monocyte% 12.9 % (0-10); NRBC Flagged by Analyzer 0 % (0-5); Neutrophil # 1.14 X10^3/uL (2.7-7.7); Neutrophil % 30.5 % (47-70); Platelet Count 384 K/mm3 (150-450); RBC Distribution Width CV 12.9 % (11.6-14.6); RBC Distribution Width SD 42.5 fl (35.1-43.9); Red Blood Count 4.14 M/mm3 (4.2-5.4); White Blood Count 3.7 K/mm3 (4.4-11.0)
--- NOTE | 2022-12-04 10:40 | RAD_ITS ---
STUDY: X-RAY CHEST REASON FOR EXAM: Female, 47 years old. chest pain TECHNIQUE: Single AP portable view of the chest. COMPARISON: November 05, 2020 FINDINGS: The lungs are clear and expanded. There is no demonstrated pleural abnormality. Normal size heart. Normal mediastinum and sean. Normal visualized pulmonary arteries. Normal visualized aortic arch and descending thoracic aorta. Normal visualized thoracic spine. Normal visualized ribs, clavicles, and shoulders. There is no demonstrated abnormality of the visualized soft tissue structures of the upper abdomen. RAD/Chest 1 View (Portable) IMPRESSION: Normal x-ray examination of the chest. Electronically Signed: Costa Olsen MD at 10:51 EST ,
[2022-12-04 10:51] LABS: Anion Gap 4 (5-15); BUN 15 mg/dL (7-18); BUN/Creat Ratio 12.9 RATIO (10-20); Calcium,Total 8.9 mg/dL (8.5-10.1); Chloride 107 mmol/L (98-107); Creatinine, Serum 1.16 mg/dL (0.55-1.02); EST Glomerular Filtration Rate 54 mL/min (>60); Est Glom Filt Rate - Afr Amer 65 mL/min (>60); Glucose 89 mg/dL (74-106); Potassium 3.8 mmol/L (3.5-5.1); Sodium Level 139 mmol/L (136-145); Troponin-I HS (w/2H Reflex) 4 pg/mL (3.0-54.0)
[2022-12-04 12:14] LABS: Reflex Troponin-HS? (from REC) Y
== END 2022-12-04 11:26 | disposition home or self-care (01) ==
PROVIDERS: Emergency Provider Emergency Medicine; PCP Internal Medicine; Visit Provider Emergency Medicine
DX: R07.9 Chest pain, unspecified (principal); E66.9 Obesity, unspecified; F17.290 Nicotine dependence, other tobacco product, uncomplicated
CPT/HCPCS: 71045; 80048; 84484; 85025; 93005; 99285; A4216

== ENCOUNTER 2023-08-29 14:33 | Emergency (ER) | payer OTHER, SELFPAY ==
[2023-08-29 14:34] VITALS: BP 168/109; PULSE 89; RESP 16; TEMP 36.3; O2SAT 100; BMI 38.7
--- NOTE | 2023-08-29 14:44 | EX.ED.DYSGE1 ---
HPI <RANGEL Arnold - Last Filed: 08/29/23 15:19> History of Present Illness Chief Complaint: Allergic Reaction Narrative Narrative: 48-year-old female has had hives in different areas of her body intermittently over the last week. She cannot think of anything new that would have caused an allergic reaction. She took hydroxyzine she has for anxiety but it made her too tired. Today she had a hive on her right eyelid prompting her to come in. She denies tongue or lip swelling or difficulty swallowing or breathing. No new medications or antibiotics. No history of anaphylaxis. PFSH <RANGEL Arnold - Last Filed: 08/29/23 15:19> [facility] Home Medications cyclobenzaprine 10 mg tablet 10 mg PO TID PRN Muscle Spasm #20 tabs 11/25/19 [Rx Last Taken Unknown] ascorbic acid (vitamin C) 1,000 mg tablet 1,000 mg PO DAILY 12/20/19 [History Last Taken Unknown] cyanocobalamin (vitamin B-12) 1,000 mcg tablet 1,000 mcg PO DAILY 12/20/19 [History Last Taken Unknown] folic acid 400 mcg tablet 0.4 mg PO DAILY@0800 12/20/19 [History Last Taken Unknown] albuterol sulfate 90 mcg/actuation aerosol inhaler 1 - 2 puff inhalation Q6H PRN PRN Shortness Of Breath 11/05/20 [History Last Taken Unknown] cefdinir 300 mg capsule 300 mg PO DAILY 11/05/20 [History Last Taken Unknown] doxycycline monohydrate 100 mg capsule 100 mg PO BID 11/05/20 [History Last Taken Unknown] methylprednisolone 4 mg tablet 4 mg PO DAILY 11/05/20 [History Last Taken Unknown] omeprazole 40 mg capsule,delayed release 40 mg PO DAILY 11/05/20 [History Last Taken Unknown] diphenhydramine HCl 25 mg capsule (Benadryl) 25 mg PO TID PRN allergic reaction 5 days #15 caps 08/29/23 [Rx Last Taken Unknown] famotidine 20 mg tablet (Pepcid) 20 mg PO BID 5 days #10 tabs 08/29/23 [Rx Last Taken Unknown] prednisone 20 mg tablet 40 mg (2 x 20 mg) PO DAILY 5 days #10 tabs 08/29/23 [Rx Last Taken Unknown] Allergy/AdvReac Type Severity Reaction Status Date / Time morphine Allergy Shortness Verified 08/29/23 14:36 of breath Surgical History H/O: hysterectomy Social History Smoking Status: Current some day smoker tobacco type: cigars ROS <RANGEL Arnold - Last Filed: 08/29/23 15:19> ROS ED ROS Narrative Constitutional: Negative for fever, chills, malaise. CVS: Negative for chest pain. Respiratory: Negative for shortness of breath. GI: Negative for abdominal pain, nausea, vomiting. Skin: Positive for rash. EXAM <RANGEL Arnold - Last Filed: 08/29/23 15:19> Physical Exam Narrative Exam Narrative: CONST: Patient sitting in no acute distress. EYES: Normal inspection. ENT: No mucosal lesions, moist mucous membranes, airway patent with midline uvula, no angioedema. NECK: Normal inspection. RESP: No respiratory distress, CTAB. CVS: Regular rate and rhythm, no murmur, no gallop. SKIN: Diffuse urticaria on chest in all extremities, 1 small hive on her right upper eyelid. EXTREMITIES: Normal appearance, no pedal edema. NEURO: Oriented x4. PSYCH: Normal affect. Const Vital Signs: 08/29/23 14:34 Temperature 97.4 F L Temperature Source Temporal Pulse Rate 89 Respiratory Rate 16 Blood Pressure 168/109 H Blood Pressure Mean 128 Pulse Ox 100 Oxygen Delivery Method Room Air <Dr. Lucas Miller MD - Last Filed: 08/29/23 17:14> Physical Exam Const Vital Signs: 08/29/23 14:34 Temperature 97.4 F L Temperature Source Temporal Pulse Rate 89 Respiratory Rate 16 Blood Pressure 168/109 H Blood Pressure Mean 128 Pulse Ox 100 Oxygen Delivery Method Room Air MDM <RANGEL Arnold - Last Filed: 08/29/23 15:19> MDM MDM Narrative Medical decision making narrative: Patient has diffuse idiopathic urticaria x1 week. She is awake alert. Vital signs stable. No signs of angioedema or other body system involvement other than hives so she does not require epinephrine. She was treated with p.o. prednisone, Pepcid, and Benadryl and prescribed these for an additional 5 days at home. Return precautions were discussed and I advised her to try and pinpoint what might be causing her symptoms. She was discharged in stable condition. <Dr. Lucas Miller MD - Last Filed: 08/29/23 17:14> [facility] Treatment and Re-Evaluation :: I have personally performed a face to face assessment of the patient and have reviewed the SEAN Note. I performed a substantive portion of the visit including all aspects of the following. My [place] findings include: History: Patient's been having hives for about a week. She could not think of anything new but then we realized that she did buy some chocolate covered donuts that were factory made recently. She has no history of allergies to these or anything else. Has never been anaphylactic to anything. She is not getting short of breath. She was concerned because she had some swelling of an eyelid. Exam: Patient has mild diffuse hives. But airway is totally patent and normal. Oropharynx is normal. No stridor. Lungs are clear. Medical Decision Making: Patient will and meds here as well as prescriptions. We discussed reasons to return. Discharge Plan Triage Chief Complaint: Allergic Reaction ED Midlevel Provider: Kelsie Batres ED Provider: Lucas Miller Dx/Rx/DC Orders Clinical Impression: Urticaria Instructions: ED Allergic Reaction Local Other Prescriptions: New prednisone 20 mg tablet 40 mg PO DAILY 5 Days Qty: 10 0RF famotidine [Pepcid] 20 mg tablet 20 mg PO BID 5 Days Qty: 10 0RF diphenhydramine HCl [Benadryl] 25 mg capsule 25 mg PO TID PRN (Reason: allergic reaction) 5 Days Qty: 15 0RF No Action cyclobenzaprine 10 MG tablet 10 mg PO TID PRN (Reason: Muscle Spasm) Qty: 20 0RF ascorbic acid (vitamin C) 1,000 MG tablet 1,000 mg PO DAILY cyanocobalamin (vitamin B-12) 1,000 MCG tablet 1,000 mcg PO DAILY folic acid 0.4 MG tablet 0.4 mg PO DAILY@0800 methylprednisolone 4 MG tablet 4 mg PO DAILY omeprazole 40 MG capsule,delayed release(DR/EC) 40 mg PO DAILY doxycycline monohydrate 100 MG capsule 100 mg PO BID albuterol sulfate 1 INHALER inhaler 1 - 2 puff INHALATION Q6H PRN PRN (Reason: Shortness Of Breath) cefdinir 300 MG capsule 300 mg PO DAILY Primary Care Provider: Kaila Mccarthy Referrals: Kaila Mccarthy MD [Primary Care Provider] - Activity Restrictions/Additional Instructions: Return to ER if symptoms worsen or if you have lip or tongue swelling or difficulty swallowing or breathing. Disposition Disposition: Home, Self Care Discharge Date/Time: 08/29/23 15:29
[2023-08-29] MEDS: DiphenhydrAMINE 25 MG Capsule PO (14:53)
[2023-08-29] MEDS: Famotidine 20 MG Tablet PO (14:53)
[2023-08-29] MEDS: predniSONE 20 MG Tablet 60 MG PO (14:53)
== END 2023-08-29 15:29 | disposition home or self-care (01) ==
LOC: ED 15:24
PROVIDERS: Emergency Provider Emergency Medicine; PCP Internal Medicine; Visit Provider Emergency Medicine
DX: T78.40XA Allergy, unspecified, initial encounter (principal); F17.290 Nicotine dependence, other tobacco product, uncomplicated; L50.9 Urticaria, unspecified; F41.9 Anxiety disorder, unspecified; Z79.899 Other long term (current) drug therapy
CPT/HCPCS: 99283

== ENCOUNTER → 2023-12-12 | Outpatient (CLI) | payer OTHER, SELFPAY ==
--- OUTSIDE RECORDS SUMMARY | 2023-12-12 16:41 | XMS RPT_ITS | CCD ---
Author Name Unknown Address [address] [facility] [address] [place] [address] Organization [facility] Care Team Providers [place] [facility] Name Role Phone Ancelmo BIGGS, Kaila Primary Care Provider [phone] ANCELMO, KAILA Primary Care Unavailable TESTSOHAIL NOVA Referring Unavailable GANTA, KAILA Primary Care Unavailable GANTA, KAILA Primary Care Unavailable SOHAIL VILLEDA Attending Unavailable DOMINICK CARCAMO Referring Unavailable SKINNY, DOMINICK Referring Unavailable GANTA, KAILA Primary Care Unavailable DOMINICK CARCAMO Attending Unavailable GANTA, KAILA Primary Care Unavailable THOMAS LUCAS Referring Unavailable GANTA, KAILA Primary Care Unavailable GANTA, KAILA Primary Care Unavailable TAYLOR SILVESTRE Referring Unavailable GANTA, KAILA Primary Care Unavailable GANTA, KAILA Primary Care Unavailable GANTA, KAILA Primary Care Unavailable GANTA, KAILA Primary Care Unavailable Allergies Allergy Classification Reported Allergen(s) Allergy Type Date of Onset Reaction(s) Facility (6 sources) Morphine; Translations: [MORPHINE] Drug Allergy 0 Shortness of Breath [facility] Work Phone: (6 sources) Seasonal allergy; Translations: [SEASONAL ALLERGIES] Propensity to adverse reactions 0 [facility] Work Phone: Medications Current Medications Medication Drug Class(es) Dates Sig (Normalized) Sig (Original) predniSONE 20 mg oral tablet (1 source) Start: 09-25-2023 End: 09-29-2023 take 1 tablet by mouth once daily at mealtime predniSONE (DELTASONE) 20 mg tablet Take 1 tablet by mouth once daily for 4 days. Take daily with food. 4 tablet 0 09/25/2023 09/29/2023 Active Completed/Discontinued Medications Medication Drug Class(es) Dates Sig (Normalized) Sig (Original) [id number] 200 actuat albuterol 0.09 mg/actuat metered dose inhaler (5 sources) beta2-Adrenergic Agonist Start: 04-05-2023 take 2 puff(s) by inhalation every six hours as needed albuterol HFA (PROAIR HFA) 90 mcg/actuation inhaler Inhale 2 Puffs as instructed every 6 hours as needed. 1 Each 0 04/05/2023 Active Problems Active Problems Problem Classification Problem Date Documented Da te Episodic/Chronic Adjustment disorders (5 sources) Adjustment disorder with mixed anxiety and depressed mood; Translations: [Adjustment disorder with mixed anxiety and depressed mood] Onset: 10-05-2011 10-05-2011 Chronic Anxiety disorders (5 sources) Anxiety; Translations: [Anxiety disorder, unspecified] 11-09-2021 Chronic Deficiency and other anemia (5 sources) Iron deficiency anemia due to blood loss; Translations: [Iron deficiency anemia secondary to blood loss (chronic)] Onset: 05-11-2016 05-11-2016 Chronic Endometriosis (5 sources) Uterine adenomyosis; Translations: [Endometriosis of uterus] Onset: 10-17-2017 10-17-2017 Chronic Immunizations and screening for infectious disease (5 sources) Finding related to response to skin test; Translations: [Nonspecific reaction to tuberculin skin test without active tuberculosis] 06-26-2007 Episodic Mood disorders (10 sources) Bipolar disorder; Translations: [Bipolar disorder, unspecified] Onset: 2014 02-12-2015 Chronic Nonspecific chest pain (1 source) Chest pain; Translations: [Chest pain, unspecified] Episodic Nutritional deficiencies (5 sources) Vitamin D deficiency; Translations: [Vitamin D deficiency, unspecified] Onset: 03-05-2013 01-01-2015 Chronic Other aftercare (1 source) Patient encounter status; Translations: [Other longterm (current) drug therapy] 05-31-2023 Episodic Other connective tissue disease (1 source) Pain in right foot; Translations: [Pain in right foot] Episodic Other eye disorders (1 source) Swelling of structure of eye; Translations: [Other specified disorders of eye and adnexa] 09-25-2023 Episodic Other female genital disorders (5 sources) Abnormal uterine bleeding; Translations: [Abnormal uterine and vaginal bleeding, unspecified] Onset: 05-11-2016 05-11-2016 Chronic Other nutritional; endocrine; and metabolic disorders (5 sources) Overweight; Translations: [Overweight] 06-26-2007 Episodic Substance-related disorders (5 sources) Tobacco user; Translations: [Nicotine dependence, unspecified, uncomplicated] 04-21-2016 Chronic Thyroid disorders (6 sources) Hypothyroidism; Translations: [Hypothyroidism, unspecified] Onset: 03-25-2014 01-01-2015 Chronic Past or Other Problems Problem Classification Problem Date Documented Da te Episodic/Chronic Acquired foot deformities (2 sources) Bunion; Translations: [Bunion of unspecified foot] Onset: 06-13-2023 06-13-2023 Episodic Chronic obstructive pulmonary disease and bronchiectasis (1 source) Bronchitis, not specified as acute or chronic; Translations: [Bronchitis] Onset: 04-05-2023 Episodic Deficiency and other anemia (5 sources) Anemia; Translations: [Anemia, unspecified] Onset: 05-05-2016 05-05-2016 Episodic Other skin disorders (6 sources) Mass of axilla; Translations: [Localized swelling, mass and lump, upper limb, bilateral] Onset: 04-21-2016 04-21-2016 Episodic Other skin disorders (4 sources) Localized swelling, mass and lump, upper limb, bilateral; Translations: [Localized superficial swelling, mass, or lump] Onset: 04-21-2016 04-21-2016 Episodic Viral infection (5 sources) Verruca vulgaris; Translations: [Other viral warts] Onset: 04-08-2009 04-08-2009 Episodic Results Test Name Value Interpretation Reference Range Facil ity Vital Signs Date Time Vital Sign Value Performing Clinician Maverick vasquez 09-25-2023 14:29-0500 Body temperature 98.8 [degF] Sharifa Mililani CLINICAL RESEARCH SPECIALIST.RN TELEPHONIC Work Phone: [facility] 09-25-2023 14:29-0500 Body weight 114.76 kg Sharifa Demetrice CLINICAL RESEARCH SPECIALIST.ECHO Work Phone: [facility] 09-25-2023 14:29-0500 Diastolic blood pressure 84 mm[Hg] Sharifa Mililani CLINICAL RESEARCH SPECIALIST.RN TELEPHONIC Work Phone: [facility] 09-25-2023 14:29-0500 Heart rate 88 /min Sharifa Mililani CLINICAL RESEARCH SPECIALIST.RN TELEPHONIC Work Phone: [facility] 09-25-2023 14:29-0500 Respiratory rate 16 /min Sharifa Demetrice CLINICAL RESEARCH SPECIALIST.RN TELEPHONIC Work Phone: [facility] 09-25-2023 14:29-0500 SaO2% (BldA) [Mass fraction] 97 % Sharifa Demetrice CLINICAL RESEARCH SPECIALIST.RN TELEPHONIC Work Phone: [facility] 09-25-2023 14:29-0500 Systolic blood pressure 132 mm[Hg] Sharifa Demetrice CLINICAL RESEARCH SPECIALIST.RN TELEPHONIC Work Phone: [facility] 12-04-2022 09:16-0500 Body temperature 97.2 [degF] Dominick Denbow PA-C Work Phone: [facility] 12-04-2022 09:16-0500 Body weight 114.94 kg Dominick Denbow PA-C Work Phone: [facility] 12-04-2022 09:16-0500 Diastolic blood pressure 64 mm[Hg] Dominick Denbow PA-C Work Phone: [facility] 12-04-2022 09:16-0500 Heart rate 62 /min Dominick Denbow PA-C Work Phone: [facility] 12-04-2022 09:16-0500 Respiratory rate 18 /min Dominick Denbow PA-C Work Phone: [facility] 12-04-2022 09:16-0500 SaO2% (BldA) [Mass fraction] 99 % Dominick Denbow PA-C Work Phone: [facility] 12-04-2022 09:16-0500 Systolic blood pressure 102 mm[Hg] Dominick Denbow PA-C Work Phone: [facility] 05-24-2022 16:31-0400 Body temperature 98.4 [degF] Thomas Lucas CLINICAL RESEARCH SPECIALIST.RN TELEPHONIC Work Phone: [facility] 07-11-2022 16:31-0400 Diastolic blood pressure 86 mm[Hg] Thomas Lucas APRN.RN TELEPHONIC Work Phone: [facility] 05-24-2022 16:31-0400 Heart rate 78 /min Thomas Lucas APRN.RN TELEPHONIC Work Phone: [facility] 05-24-2022 16:31-0400 Respiratory rate 16 /min Thomas Lucas APRN.RN TELEPHONIC Work Phone: [facility] 05-24-2022 16:31-0400 SaO2% (BldA) [Mass fraction] 99 % Thomas Lucas CLINICAL RESEARCH SPECIALIST.RN TELEPHONIC Work Phone: [facility] 05-24-2022 16:31-0400 Systolic blood pressure 144 mm[Hg] Thomas Lucas APRN.RN TELEPHONIC Work Phone: [facility] Encounters Encounter Date Encounter Type Care Provider Facility Start: 11-21-2023 End: 11-21-2023 [facility] Facility:[facility] Start: 09-25-2023 End: 09-25-2023 ambulatory [facility] Facility:[facility] Start: 09-25-2023 End: 09-25-2023 Patient encounter procedure Sharifa Mililani KEVIN.RN TELEPHONIC Work Phone: [facility] Procedures Date Procedure Procedure Detail Performing Clinician Start: 06-13-2023 Radex foot complete minimum 3 views Sohail Villeda Work Phone: Start: 05-24-2022 Radex foot complete minimum 3 views Thomas Lucas APRN.RN TELEPHONIC Work Phone: Start: 10-17-2017 Mammography Thomas barker CLINICAL RESEARCH SPECIALIST.RN TELEPHONIC Work Phone: Start: 04-21-2016 Lipid 1996 panel - S barrie or Plasma Xr Mob Work Phone: Plan of Treatment Date Care Activity Detail Author Start: 05-20-2024 ANNUAL PCP TEAM BUSINESS MANAGEMENT PROFESSOR JUD DISEASE VISIT ANNUAL PCP TEAM CHRONIC DISEASE VISIT [facility] Start: 07-15-2023 Covid-19 Vaccine () Covid-19 Vaccine () [facility] Start: 07-15-2023 Influenza vaccination C [facility] Start: 05-31-2023 End: 07-31-2023 Hemoglobin A1c in Blood HGB A1C Lab Routine Medication management Expected: 05/31/2023, Expires: 07/31/2023 [facility] Work Phone: Immunizations Immunization Date Immunization Notes Care Provider Niko santos 08-21-2009 influenza virus vaccine, unspecified formulation Thomas Lucas APRN.RN TELEPHONIC Work Phone: [facility] Work Phone: Payers Date Payer Category Payer Unknown MELVA THOMAS DANIA [id number] 2023-Present [phone] [address] [place] [address] Indemnity [id number] 2023 Unknown [id number] 2017 Medicaid [employer] [employer] [employer] [id number] 2017-Present [phone] [address] [place], [place] [address] Medicaid [id number] 2017 Medicaid [place] [employer] [place] [employer] [id number] 2017-Present [phone] [address] [place], [place] [address] Medicaid [id number] 2017 Medicaid [id number] Social History Date Type Detail Facility Start: 02-03-2016 End: 12-04-2022 Tobacco smoking status NHIS Smokes tobacco daily [facility] History of tobacco use Cigar Smoker [facility] Start: 02-03-2016 End: 06-13-2023 Tobacco use and exposure Smokeless tobacco non-user [facility] Start: 05-24-2022 End: 09-25-2023 Alcohol intake Current drinker of alcohol (finding) [facility] Start: 01-13-2010 History SDOH Alcohol Comment Occasionally (few times a month),NOT WHILE [facility] Start: 01-01-2015 Tobacco [facility] 1975 Sex Assigned At Not on file C [facility] Start: 12-04-2022 Tobacco Comment smokes 2-3 cigars da asha [facility] Start: 05-20-2023 End: 09-25-2023 History of Social function [facility] Start: 05-20-2023 End: 09-25-2023 Tobacco use panel [facility] National Score (1-100), lower number is lower risk 80 [facility] Start: 06-13-2023 Tobacco smoking status NHIS Occasional tobacco smoker [facility] Work Phone: Start: 06-13-2023 Tobacco Comment smokes 2-3 cig ars few times a week [facility] Clinical Notes 06-01-2010 to 09-25-2023 Sharifa Suresh APRN.RN TELEPHONIC - 09/25/2023 2:32 PM Brigitte Carcamo PA-C - 12/04/2022 9:22 AM Henry Lucas APRN.RN TELEPHONIC - 05/24/2022 5:10 PM EDT Note Date & Type Note Facility 09-25-2023 Note HNO ID: [id number] Author: Sharifa Suresh APRN.RN TELEPHONIC Service: ? Author Type: Nurse Practitioner Type: Progress Notes Filed: 09/25/2023 2:47 PM Note Text: This note was created using Restaror[employer]. Subjective Cloudpita Yanes is a 48 year old female. HPI pt states that she has has swelling AND hives on the right side of the neck that has been on/off for the past month. Then today she started with swelling and tearing of the right eye. She took some Benadryl around noon today, but doesn't feel that it is helping. Review of Systems HENT: Positive for facial swelling. Eyes: Positive for discharge. Skin: Positive for rash. Objective BP 132/84 Pulse 88 Temp 37.1 ?C (98.8 ?F) Resp 16 Wt 114.8 kg (253 lb) LMP 08/08/2016 (Exact Date) SpO2 97% BMI 40.84 kg/m? Physical Exam HENT: Head: Normocephalic. Eyes: General: Right eye: Discharge (with slight swelling) present. Conjunctiva/sclera: Conjunctivae normal. Pupils: Pupils are equal, round, and reactive to light. Pulmonary: Effort: Pulmonary effort is normal. Skin: General: Skin is warm. Coloration: Jaundice: no hives or swelling noted. Neurological: Mental Status: She is alert. Assessment and Plan ASSESSMENT/PLAN: 1. Eye swelling, right - ICD9: 379.92, ICD10: H57.89 Prednisone 20 mg x 4 days Follow up is swelling or hives get worse Go the the ED in any trouble breathing. Sharifa Suresh APRN.RN TELEPHONIC Medical Decision Making: Problems: Low: Acute, uncomplicated illness or injury Risk: Low: Low risk from testing/treatment Moderate: Drug management Medical Decision Making Level: 3 - Low [facility] 09-25-2023 History of Present illness Narrative This note was created using [employer]. Subjective Kai Yanes is a 48 year old female. HPI pt states that she has has swelling & hives on the right side of the neck that has been on/off for the past month. Then today she started with swelling and tearing of the right eye. She took some Benadryl around noon today, but doesn't feel that it is helping. Review of Systems HENT: Positive for facial swelling. Eyes: Positive for discharge. Skin: Positive for rash. Objective BP 132/84 Pulse 88 Temp 37.1 C (98.8 F) Resp 16 Wt 114.8 kg (253 lb) LMP 08/08/2016 (Exact Date) SpO2 97% BMI 40.84 kg/m Physical Exam HENT: Head: Normocephalic. Eyes: General: Right eye: Discharge (with slight swelling) present. Conjunctiva/sclera: Conjunctivae normal. Pupils: Pupils are equal, round, and reactive to light. Pulmonary: Effort: Pulmonary effort is normal. Skin: General: Skin is warm. Coloration: Jaundice: no hives or swelling noted. Neurological: Mental Status: She is alert. Assessment and Plan ASSESSMENT/PLAN: 1. Eye swelling, right - ICD9: 379.92, ICD10: H57.89 Prednisone 20 mg x 4 days Follow up is swelling or hives get worse Go the the ED in any trouble breathing. Sharifa Suresh APRN.CNP Medical Decision Making: Problems: Low: Acute, uncomplicated illness or injury Risk: Low: Low risk from testing/treatment Moderate: Drug management Medical Decision Making Level: 3 - Low documented in this encounter [facility] 06-13-2023 Note HNO ID: [id number] Author: Ivy Moreno RT(R) Service: ? Author Type: Welder Fitter Type: Progress Notes Filed: 06/13/2023 4:46 PM Note Text: Radiology Service Progress Note PATIENT NAME: Kai Yanes DATE OF SERVICE: June 13, 2023 TIME: 4:35 PM PATIENT IDENTITY VERIFICATION COMPLETED USING TWO (2) IDENTIFIERS: Name and Date of confirmed by patient verbally. FALL SCREENING: Has the patient had 2 falls in the last year or 1 fall with injury or currently using an Ambulatory Assistive Device (Walker, Cane, Wheelchair, Crutches, etc.)? No PATIENT GENDER DATA: Female. status: : No status: NO. PATIENT RELEVANT IMPLANT DATA REVIEWED: Yes RADIOLOGY DEPARTMENT: General X-ray: Exam(s) Completed: Lower Extremity X-Ray(s): Foot, Right PERIPHERAL IV DATA: Not applicable SIGNED BY: RT Millie(R) June 13, 2023 4:35 PM [facility] 06-13-2023 Note HNO ID: [id number] Author: Gila Ramirez LPN Service: ? Author Type: LICENSED NURSE Type: Progress Notes Filed: 06/14/2023 10:48 PM Note Text: Per Kai Cheung was provided with powerstep original , size 10, and instructed/educated in its application, wear, and care. All questions were answered, and patient was able to demonstrate competence with the necessary skills to utilize the above equipment. Gila Ramirez LPN [facility] 06-13-2023 Note HNO ID: [id number] Author: Sohail Villeda Service: ? Author Type: Physician Type: Progress Notes Filed: 06/14/2023 10:48 PM Note Text: Consultation requested by Dr. Carcamo for an opinion regarding bunion. My final recommendations will be communicated back to the requesting physician by way of shared Medical record or letter to requesting physician via US mail. Initial Podiatric Office Visit: Chief Complaint: This 48 year old female who presents with chief complaint:painful bunion of right foot HPI Patient presents to clinic for evaluation of right foot. Complains of bunion that is painful along the medial eminence. She also has pain to the 2nd toe because the toe is rubbing. Patient has tried bunion padding/bracing and wider shoes. Patient has also tried massage. Conservative care provides temporary relief but nothing sustainable. Patient smokes cigars and smokes 4 days/week. PAIN EVALUATION 06/13/2023 1546 Pain Level: 10 Pain Location: Foot-Right Description: Throbbing Duration Units: Years Frequency: Continuous Intervention/Comfort measure: Reposition;Relaxation;Cold;Massa ge No results found for: HBA1C PCP: Kaila Ag MD PAST MEDICAL HISTORY Diagnosis Date Anemia Anxiety Depression Encounter for insertion or removal of intrauterine contraceptive device 02/24/2009 Mirena INSERTION AND REMOVAL Tobacco use disorder age 16 Tuberculin test reaction 1999 CXR negative at [facility], and to date (through 2003) Current Outpatient Medications Medication Sig cyanocobalamin (VITAMIN B-12) 500 mcg tablet Take by mouth once daily. biotin 1 mg cap Take by mouth. naproxen (NAPROSYN) 500 mg tablet Take 1 tablet by mouth twice daily with meals. omeprazole (PRILOSEC) 20 mg capsule Take 1 capsule by mouth daily before breakfast. 1/2 hr before meal. albuterol HFA (PROAIR HFA) 90 mcg/actuation inhaler Inhale 2 Puffs as instructed every 6 hours as needed. Ascorbic Acid powd Take 1 teaspoonful by mouth once daily. No current facility-administered medications for this visit. ALLERGIES Allergen Reactions Morphine Shortness of Breath Seasonal Allergies PAST SURGICAL HISTORY Procedure Laterality Date CURETTAGE 2003 EAb at 12 weeks CYSTOSCOPY 12/27/2019 DILATION AND CURETTAGE DXAND/THER NONOBSTETRIC age 16 SAb at 5months EXTRACTION, ERUPTED TOOTH OR EXPOSED ROOT (ELEVATION AND/OR FORCEPS REMOVAL) 2006 wisdom teeth IUD INSERTION (SLOT OPERATIONS DIRECTOR DEPT)_*FL 02/24/2009 Mirena LIG/TRNSXJ FLP TUBE ABDL/VAG APPR UNI/BI 2010 Tubal ligation NOVASURE 07/13/2016 REMOVE INTRAUTERINE DEVICE 07/10/2009 Mirena SALPINGECTOMY Bilateral 12/27/2019 B/L Salpingectomy at [facility]-Dr. Elias TONSILLECTOMY PRIMARY/SECONDARY Tonsillectomy VAGINAL HYSTERECTOMY UTERUS 250 GM/< 12/27/2019 LAVH at [facility]-Dr. Elias FAMILY HISTORY Problem Relation Age of Onset Arthritis Mother Hypertension Maternal Grandmother Diabetes Maternal Grandmother Diabetes Maternal Uncle Social History Tobacco Use Smoking status: Some Days Types: Cigars Smokeless tobacco: Never Tobacco comments: smokes 2-3 cigars few times a week Substance Use Topics Alcohol use: Yes Comment: Occasionally (few times a month),NOT WHILE Drug use: No REVIEW OF SYSTEMS GENERAL: Negative for Malaise, significant weight loss, fever RESPIRATORY: Negative for cough, wheezing and shortness of breath CARDIOVASCULAR: Negative for chest pain, leg swelling and palpitations GI: Negative for abdominal discomfort, blood in stools or black stools and change in bowel habits : Negative for dysuria, frequency and incontinence MUSCULOSKELETAL: Negative for joint pain or swelling, back pain, and muscle pain. SKIN: Negative for lesions, rash, and itching. HEMATOLOGY/LYMPHOLOGY Negative for prolonged bleeding, bruising easily, and swollen nodes. ENDOCRINE: Negative for cold or heat intolerance, polyuria, polydipsia and goiter. NEURO: negative Physical Exam: Constitutional: Pt is a well developed 48 year old female who is alert, oriented and cooperative Eyes: Following during examination. No redness or drainage. Respiratory: RR normal and nonlabored. Even breathing. No evidence of distress or shortness of breath. Psychology: Patient is engaged during conversation. Normal affect and mood. Does not appear depressed or anxious during encounter. Vascular: Dorsalis pedis and posterior tibial pulses faintly palpable as b/l Capillary Fill time < 5 seconds to digits 1-5 b/l Skin temperature warm to warm proximal to distal b/l Hair growth present to digits Neurological: intact light touch/epicritic sensation b/l intact protective sensation no significant neurological deficits Dermatological: Nails 1-5 b/l appear normal. Webspaces clean and dry 1-4 b/l. Skin appears well hydrated and supple. good color, texture, turgor. No open lesions present. No callosities presen (more content not included)... [facility] 06-13-2023 Note HNO ID: [id number] Author: Gila Ramirez LPN Service: ? Author Type: LICENSED NURSE Type: Progress Notes Filed: 06/14/2023 10:48 PM Note Text: AMB ROOMING INTAKE FLOWSHEET DATA Risk Screening Do you have concerns about personal safety or safety in the home?: No Pain Pain Level: 10 Pain Location: Foot-Right Description: Throbbing Duration Units: Years Frequency: Continuous Intervention/Comfort measure: Reposition, Relaxation, Cold, Massage Patient presents with: Right Foot - New, Pain, Bunion Gila Ramirez LPN [facility] 05-31-2023 Note Patient Outreach (IN [facility]) KAI YANES ([id number]) 1975 F Date Time Provider Department 05/31/23 KAILA AG During your visit today, we recorded the following information about you: Allergies As of Date: 05/31/2023 Noted Allergy Reaction MORPHINE 01/13/2010 12 - Shortness of Breath SEASONAL ALLERGIES 01/13/2010 Date Reviewed: 04/26/2023 Reviewed by: Thomas Lucas APRN.RN TELEPHONIC - Fully Assessed Visit Diagnoses:Medication management [Z79.899] Hypothyroidism [E03.9] Order(s):HGB A1C [PBDKS3U] Order #: [id number] FUTURE TSH BLD [SQTSH] Order #: [id number] FUTURE Prescriptions as of 06/03/2023 - naproxen (NAPROSYN) 500 mg tablet Take 1 tablet by mouth twice daily with meals. - omeprazole (PRILOSEC) 20 mg capsule Take 1 capsule by mouth daily before breakfast. 1/2 hr before meal. - albuterol HFA (PROAIR HFA) 90 mcg/actuation inhaler Inhale 2 Puffs as instructed every 6 hours as needed. - Ascorbic Acid powd Take 1 teaspoonful by mouth once daily. Problem List As Of Date 05/31/2023 Noted Resolved TUBERCULIN TEST REACTION NO TBC [795.5] TOBACCO USE DISORDER [F17.200] OVERWEIGHT [E66.3] GENITAL WARTS NOS [B07.8] 04/08/2009 Supervision of other high-risk [O09.8*06/01/2010 10/05/2011 Adjustment disorder with mixed anxiety and depr*10/05/2011 Vitamin D deficiency [E55.9] 03/05/2013 Bipolar affective (HCC) [F31.9] 2014 Hypothyroidism [E03.9] 03/25/2014 Anxiety [F41.9] Depression [F32.A] Mass of both axillae [R22.33] 04/21/2016 Anemia [D64.9] 05/05/2016 Iron deficiency anemia due to chronic blood los*05/11/2016 Abnormal uterine bleeding (AUB) [N93.9] 05/11/2016 Adenomyosis [N80.03] 10/17/2017 Axillary mass [R22.30] 10/31/2017 Encounter Status:Closed by KAYCE CASTILLO on 06/03/23 [facility] 05-25-2023 Note Patient Outreach (IN [facility]) KAI YANES ([id number]) 1975 F Date Time Provider Department 05/25/23 [facility] During your visit today, we recorded the following information about you: Allergies As of Date: 05/25/2023 Noted Allergy Reaction MORPHINE 01/13/2010 12 - Shortness of Breath SEASONAL ALLERGIES 01/13/2010 Date Reviewed: 04/26/2023 Reviewed by: Thomas Lucas APRN.RN TELEPHONIC - Fully Assessed Visit Diagnosis:Encounter for screening mammogram for breast cancer [Z12.31] Order(s):[facility] SCREENING [7191023] Order #: [id number] FUTURE Prescriptions as of 05/30/2023 - naproxen (NAPROSYN) 500 mg tablet Take 1 tablet by mouth twice daily with meals. - omeprazole (PRILOSEC) 20 mg capsule Take 1 capsule by mouth daily before breakfast. 1/2 hr before meal. - albuterol HFA (PROAIR HFA) 90 mcg/actuation inhaler Inhale 2 Puffs as instructed every 6 hours as needed. - Ascorbic Acid powd Take 1 teaspoonful by mouth once daily. Problem List As Of Date 05/25/2023 Noted Resolved TUBERCULIN TEST REACTION NO TBC [795.5] TOBACCO USE DISORDER [F17.200] OVERWEIGHT [E66.3] GENITAL WARTS NOS [B07.8] 04/08/2009 Supervision of other high-risk [O09.8*06/01/2010 10/05/2011 Adjustment disorder with mixed anxiety and depr*10/05/2011 Vitamin D deficiency [E55.9] 03/05/2013 Bipolar affective (HCC) [F31.9] 2014 Hypothyroidism [E03.9] 03/25/2014 Anxiety [F41.9] Depression [F32.A] Mass of both axillae [R22.33] 04/21/2016 Anemia [D64.9] 05/05/2016 Iron deficiency anemia due to chronic blood los*05/11/2016 Abnormal uterine bleeding (AUB) [N93.9] 05/11/2016 Adenomyosis [N80.03] 10/17/2017 Axillary mass [R22.30] 10/31/2017 Encounter Status:Closed by [employer], [employer] on 05/30/23 [facility] 05-20-2023 Note HNO ID: [id number] Author: RT Emma(R) Service: Radiology Author Type: Technologist Type: Progress Notes Filed: 05/20/2023 2:14 PM Note Text: Radiology Service Progress Note PATIENT NAME: Kai Yanes DATE OF SERVICE: May 20, 2023 TIME: 2:02 PM PATIENT IDENTITY VERIFICATION COMPLETED USING TWO (2) IDENTIFIERS: Name and Date of confirmed by patient verbally. FALL SCREENING: Has the patient had 2 falls in the last year or 1 fall with injury or currently using an Ambulatory Assistive Device (Walker, Cane, Wheelchair, Crutches, etc.)? No PATIENT GENDER DATA: Female. status: : No status: NO. PATIENT RELEVANT IMPLANT DATA REVIEWED: Yes RADIOLOGY DEPARTMENT: General X-ray: Exam(s) Completed: Lower Extremity X-Ray(s): Knee, AP / LAT Right and Wt. Bearing PERIPHERAL IV DATA: Not applicable SIGNED BY: RT Emma(R) May 20, 2023 2:02 PM [facility] 05-20-2023 Note HNO ID: [id number] Author: Dominick Carcamo PA-C Service: ? Author Type: Physician Correctional Manager Type: Progress Notes Filed: 05/20/2023 2:06 PM Note Text: CC: Patient presents with: Same Day Appointment: right knee pain x 4 weeks HPI Kai Yanes is a 48 year old female who presents today for R knee pain that began end of March. The pain is acute. Located: diffuse, even extending into back of knee. Described as throbbing and achey, and rated as severe (10/10) Injury: No specific mechanism of injury. Aggravated by: walking, sleeping , sitting for long periods of time (ie driving), and with flexion of the knee Knee popping or clicking with movement? Yes - recently this started Knee locking or feel like is giving-out? No Does the knee pain wake you up at night:Yes Previous injury: No Previous surgery: No Treatment: IBU, Tylenol, ice, bracing, prednisone and massage with minimal relief of symptoms REVIEW OF SYSTEMS MUSCULOSKELETAL: See HPI All other systems negative. PAST MEDICAL HISTORY Diagnosis Date Anemia Anxiety Depression Encounter for insertion or removal of intrauterine contraceptive device 02/24/2009 Mirena INSERTION AND REMOVAL Tobacco use disorder age 16 Tuberculin test reaction 1999 CXR negative at [facility], and to date (through 2003) PAST SURGICAL HISTORY Procedure Laterality Date CURETTAGE 2003 EAb at 12 weeks CYSTOSCOPY 12/27/2019 DILATION AND CURETTAGE DXAND/THER NONOBSTETRIC age 16 SAb at 5months EXTRACTION, ERUPTED TOOTH OR EXPOSED ROOT (ELEVATION AND/OR FORCEPS REMOVAL) 2006 wisdom teeth IUD INSERTION (SLOT OPERATIONS DIRECTOR DEPT)_*FL 02/24/2009 Mirena LIG/TRNSXJ FLP TUBE ABDL/VAG APPR UNI/BI 2010 Tubal ligation NOVASURE 07/13/2016 REMOVE INTRAUTERINE DEVICE 07/10/2009 Mirena SALPINGECTOMY Bilateral 12/27/2019 B/L Salpingectomy at [facility]-Dr. Elias TONSILLECTOMY PRIMARY/SECONDARY Tonsillectomy VAGINAL HYSTERECTOMY UTERUS 250 GM/< 12/27/2019 LAVH at [facility]-Dr. Elias ALLERGIES Morphine and Seasonal Allergies MEDICATIONS benzonatate (TESSALON PERLES) 100 mg capsule Take 2 capsules by mouth three times daily as needed. albuterol HFA (PROAIR HFA) 90 mcg/actuation inhaler Inhale 2 Puffs as instructed every 6 hours as needed. cyclobenzaprine (FLEXERIL) 5 mg tablet take 1 tablet by mouth three times a day if needed (Patient not taking: Reported on 09/12/2021) ibuprofen (MOTRIN) 600 mg tablet Take 1 tablet by mouth every 6 hours as needed. FOR PAIN. Qabvkbtxjaloclc-Xkyedqali-DM (BROMFED DM) 2-30-10 mg/5 mL syrup Take 10 mL by mouth four times daily as needed. (Patient not taking: Reported on 11/20/2019 ) albuterol HFA (PROAIR HFA) 90 mcg/actuation inhaler Inhale 2 Puffs as instructed every 6 hours as needed. tolterodine ER (DETROL LA) 4 mg 24 hr capsule Take 1 capsule by mouth once daily. (Patient not taking: Reported on 11/20/2019 ) ferrous sulfate 325 mg (65 mg iron) tablet Take 1 tablet by mouth twice daily with meals. (Patient not taking: Reported on 01/09/2020 ) folic acid 400 mcg tablet Take 1 tablet by mouth once daily. (Patient not taking: Reported on 09/12/2021 ) cholecalciferol, Vitamin D3, (VITAMIN D3) 50,000 unit cap capsule Take 1 capsule by mouth once each week. (Patient not taking: Reported on 04/05/2023) fluticasone (FLONASE) 50 mcg/actuation nasal spray Use 2 Sprays in each nostril once daily. Rinse mouth after use. (Patient not taking: Reported on 09/12/2021 ) ibuprofen (MOTRIN) 600 mg tablet Take 1 tablet by mouth every 6 hours as needed for Pain. (Patient not taking: Reported on 11/20/2019 ) gabapentin (NEURONTIN) 300 mg capsule Take 1 capsule by mouth daily at bedtime for 30 days. (Patient not taking: Reported on 09/12/2021) MULTIVITAMIN ORAL Take 1 tablet by mouth once daily. (Patient not taking: Reported on 09/12/2021 ) VITAMIN E, DL,TOCOPHERYL ACET, (VITAMIN E, DL, ACETATE,) 400 unit capsule Take 400 Units by mouth once daily. (Patient not taking: Reported on 09/12/2021 ) Ascorbic Acid powd Take 1 teaspoonful by mouth once daily. DOC-Q-LACE 100 mg capsule take 1 capsule by mouth twice a day (Patient not taking: Reported on 09/12/2021) lamoTRIgine (LAMICTAL) 100 mg tablet Take 1 tablet by mouth once daily. (Patient not taking: Reported on 11/20/2019 ) HYDROXYZINE HCL ORAL Take by mouth. (Patient not taking: Reported on 09/12/2021 ) FAMILY HISTORY Problem Relation Age of Onset Arthritis Mother Hypertension Maternal Grandmother Diabetes Maternal Grandmother Diabetes Maternal Uncle Social History Tobacco Use Smoking status: Every Day Types: Cigars Smokeless tobacco: Never Tobacco comments: smokes 2-3 cigars daily Substance Use Topics Alcohol use: Yes Comment: Occasionally (few times a month),NOT WHILE Drug use: No PHYSICAL EXAM LMP 08/08/2016 (Exact Date) General Appearance: well appearing, in no acute distress, alert, obese Skin: Skin (more content not included)... [facility] 04-26-2023 Note HNO ID: [id number] Author: RT Emma(R) Service: Radiology Author Type: Technologist Type: Progress Notes Filed: 04/26/2023 4:29 PM Note Text: Radiology Service Progress Note PATIENT NAME: Kai Yanes DATE OF SERVICE: April 26, 2023 TIME: 4:20 PM PATIENT IDENTITY VERIFICATION COMPLETED USING TWO (2) IDENTIFIERS: Name and Date of confirmed by patient verbally. FALL SCREENING: Has the patient had 2 falls in the last year or 1 fall with injury or currently using an Ambulatory Assistive Device (Walker, Cane, Wheelchair, Crutches, etc.)? No PATIENT GENDER DATA: Female. status: : No status: NO. PATIENT RELEVANT IMPLANT DATA REVIEWED: Yes RADIOLOGY DEPARTMENT: General X-ray: Exam(s) Completed: Lower Extremity X-Ray(s): Tibia Fibula, Right PERIPHERAL IV DATA: Not applicable SIGNED BY: RT Emma(R) April 26, 2023 4:20 PM [facility] 04-26-2023 Note HNO ID: [id number] Author: Thomas Lucas APRN.RN TELEPHONIC Service: ? Author Type: Nurse Practitioner Type: Progress Notes Filed: 04/26/2023 5:11 PM Note Text: Subjective HPI HPI Kai Yanes is a 48 year old female who presents today for CC of right lower extremity pain. This started 10 days ago. Has tried otc medication for relief. Symptoms are worsened by rom of right lower extremity. No injury noted. Was severe upon waking. .Patient presents with: right lower leg and knee pain: X 10 days-cannot recall an injury PAST MEDICAL HISTORY Diagnosis Date Anemia Anxiety Depression Encounter for insertion or removal of intrauterine contraceptive device 02/24/2009 Mirena INSERTION AND REMOVAL Tobacco use disorder age 16 Tuberculin test reaction 1999 CXR negative at [facility], and to date (through 2003) PAST SURGICAL HISTORY Procedure Laterality Date CURETTAGE 2004 EAb at 12 weeks CYSTOSCOPY 12/27/2019 DILATION AND CURETTAGE DXAND/THER NONOBSTETRIC age 16 SAb at 5months EXTRACTION, ERUPTED TOOTH OR EXPOSED ROOT (ELEVATION AND/OR FORCEPS REMOVAL) 2007 wisdom teeth IUD INSERTION (SLOT OPERATIONS DIRECTOR DEPT)_*FL 02/24/2009 Mirena LIG/TRNSXJ FLP TUBE ABDL/VAG APPR UNI/BI 2010 Tubal ligation NOVASURE 07/13/2016 REMOVE INTRAUTERINE DEVICE 07/10/2009 Mirena SALPINGECTOMY Bilateral 12/27/2019 B/L Salpingectomy at [facility]-Dr. Elias TONSILLECTOMY PRIMARY/SECONDARY Tonsillectomy VAGINAL HYSTERECTOMY UTERUS 250 GM/< 12/27/2019 LAVH at [facility]-Dr. Elias ALLERGIES Morphine and Seasonal Allergies MEDICATIONS benzonatate (TESSALON PERLES) 100 mg capsule Take 2 capsules by mouth three times daily as needed. albuterol HFA (PROAIR HFA) 90 mcg/actuation inhaler Inhale 2 Puffs as instructed every 6 hours as needed. ibuprofen (MOTRIN) 600 mg tablet Take 1 tablet by mouth every 6 hours as needed. FOR PAIN. albuterol HFA (PROAIR HFA) 90 mcg/actuation inhaler Inhale 2 Puffs as instructed every 6 hours as needed. Ascorbic Acid powd Take 1 teaspoonful by mouth once daily. cyclobenzaprine (FLEXERIL) 5 mg tablet take 1 tablet by mouth three times a day if needed (Patient not taking: Reported on 09/12/2021) Ewueqmzvujtsgaa-Jthqiukvk-YY (BROMFED DM) 2-30-10 mg/5 mL syrup Take 10 mL by mouth four times daily as needed. (Patient not taking: Reported on 11/20/2019 ) tolterodine ER (DETROL LA) 4 mg 24 hr capsule Take 1 capsule by mouth once daily. (Patient not taking: Reported on 11/20/2019 ) ferrous sulfate 325 mg (65 mg iron) tablet Take 1 tablet by mouth twice daily with meals. (Patient not taking: Reported on 01/09/2020 ) folic acid 400 mcg tablet Take 1 tablet by mouth once daily. (Patient not taking: Reported on 09/12/2021 ) cholecalciferol, Vitamin D3, (VITAMIN D3) 50,000 unit cap capsule Take 1 capsule by mouth once each week. (Patient not taking: Reported on 04/05/2023) fluticasone (FLONASE) 50 mcg/actuation nasal spray Use 2 Sprays in each nostril once daily. Rinse mouth after use. (Patient not taking: Reported on 09/12/2021 ) ibuprofen (MOTRIN) 600 mg tablet Take 1 tablet by mouth every 6 hours as needed for Pain. (Patient not taking: Reported on 11/20/2019 ) gabapentin (NEURONTIN) 300 mg capsule Take 1 capsule by mouth daily at bedtime for 30 days. (Patient not taking: Reported on 09/12/2021) MULTIVITAMIN ORAL Take 1 tablet by mouth once daily. (Patient not taking: Reported on 09/12/2021 ) VITAMIN E, DL,TOCOPHERYL ACET, (VITAMIN E, DL, ACETATE,) 400 unit capsule Take 400 Units by mouth once daily. (Patient not taking: Reported on 09/12/2021 ) DOC-Q-LACE 100 mg capsule take 1 capsule by mouth twice a day (Patient not taking: Reported on 09/12/2021) lamoTRIgine (LAMICTAL) 100 mg tablet Take 1 tablet by mouth once daily. (Patient not taking: Reported on 11/20/2019 ) HYDROXYZINE HCL ORAL Take by mouth. (Patient not taking: Reported on 09/12/2021 ) FAMILY HISTORY Problem Relation Age of Onset Arthritis Mother Hypertension Maternal Grandmother Diabetes Maternal Grandmother Diabetes Maternal Uncle Social History Tobacco Use Smoking status: Every Day Types: Cigars Smokeless tobacco: Never Tobacco comments: smokes 2-3 cigars daily Substance Use Topics Alcohol use: Yes Comment: Occasionally (few times a month),NOT WHILE Drug use: No ROS Objective Blood pressure 130/82, pulse 71, temperature 36.8 ?C (98.2 ?F), temperature source Tympanic, resp. rate 16, weight 117.4 kg (258 lb 12.8 oz), last menstrual period 08/08/2016, SpO2 99 %. Physical Exam Constitutional: General: She is not in acute distress. Appearance: She is not toxic-appearing or diaphoretic. HENT: Head: Normocephalic and atraumatic. Cardiovascular: Pulses: Dorsalis pedis pulses are 2+ on the right side. Posterior tibial pulses are 2+ on the right side. Pulmonary: Effort: Pulmonary effort is normal. No accessory muscle usage or respiratory (more content not included)... [facility] 04-05-2023 Note HNO ID: [id number] Author: Taylor Silvestre PA-C Service: ? Author Type: Physician Correctional Manager Type: Progress Notes Filed: 04/05/2023 12:03 PM Note Text: This note was created using [employer]. Benji Yanes is a 48 year old female. HPI Presents with chest congestion, cough over the past 10 days. It does hurt when she coughs in her chest. She used to have an inhaler but had lost it. She is a smoker. She has felt wheezy off and on. She has had a runny nose and ear pain off and on as well. Tuesday she started to feel worse so she came in for evaluation today. No fever. No diarrhea or vomiting but has had some nausea and abdominal bloating. Review of Systems Constitutional: Positive for fatigue. HENT: Positive for congestion, rhinorrhea and sore throat. Negative for sinus pressure. Respiratory: Positive for cough, chest tightness and wheezing. Negative for shortness of breath. Cardiovascular: Positive for chest pain. Gastrointestinal: Negative. Genitourinary: Negative. Musculoskeletal: Positive for myalgias. Neurological: Positive for headaches. All other systems reviewed and are negative. PAST MEDICAL HISTORY Diagnosis Date Anemia Anxiety Depression Encounter for insertion or removal of intrauterine contraceptive device 02/24/2009 Mirena INSERTION AND REMOVAL Tobacco use disorder age 16 Tuberculin test reaction 1999 CXR negative at [facility], and to date (through 2003) Current Outpatient Medications Medication Sig Dispense Refill ibuprofen (MOTRIN) 600 mg tablet Take 1 tablet by mouth every 6 hours as needed. FOR PAIN. 30 tablet 0 albuterol HFA (PROAIR HFA) 90 mcg/actuation inhaler Inhale 2 Puffs as instructed every 6 hours as needed. 1 Inhaler 0 Ascorbic Acid powd Take 1 teaspoonful by mouth once daily. predniSONE (DELTASONE) 10 mg tablet Take 4 tabs daily for 3 days, then 2 tabs daily for 3 days, then 1 tab daily for 3 days with food. 21 tablet 0 benzonatate (TESSALON PERLES) 100 mg capsule Take 2 capsules by mouth three times daily as needed. 30 capsule 0 albuterol HFA (PROAIR HFA) 90 mcg/actuation inhaler Inhale 2 Puffs as instructed every 6 hours as needed. 1 Each 0 cyclobenzaprine (FLEXERIL) 5 mg tablet take 1 tablet by mouth three times a day if needed (Patient not taking: Reported on 09/12/2021) 30 tablet 0 Kibizmtmcctiapy-Wfdhglcno-MY (BROMFED DM) 2-30-10 mg/5 mL syrup Take 10 mL by mouth four times daily as needed. (Patient not taking: Reported on 11/20/2019 ) 200 mL 0 tolterodine ER (DETROL LA) 4 mg 24 hr capsule Take 1 capsule by mouth once daily. (Patient not taking: Reported on 11/20/2019 ) 30 capsule 2 ferrous sulfate 325 mg (65 mg iron) tablet Take 1 tablet by mouth twice daily with meals. (Patient not taking: Reported on 01/09/2020 ) 60 tablet 11 folic acid 400 mcg tablet Take 1 tablet by mouth once daily. (Patient not taking: Reported on 09/12/2021 ) 30 tablet 11 cholecalciferol, Vitamin D3, (VITAMIN D3) 50,000 unit cap capsule Take 1 capsule by mouth once each week. (Patient not taking: Reported on 04/05/2023) 4 capsule 5 fluticasone (FLONASE) 50 mcg/actuation nasal spray Use 2 Sprays in each nostril once daily. Rinse mouth after use. (Patient not taking: Reported on 09/12/2021 ) 1 Bottle 11 ibuprofen (MOTRIN) 600 mg tablet Take 1 tablet by mouth every 6 hours as needed for Pain. (Patient not taking: Reported on 11/20/2019 ) 30 tablet 0 gabapentin (NEURONTIN) 300 mg capsule Take 1 capsule by mouth daily at bedtime for 30 days. (Patient not taking: Reported on 09/12/2021) 30 capsule 3 MULTIVITAMIN ORAL Take 1 tablet by mouth once daily. (Patient not taking: Reported on 09/12/2021 ) VITAMIN E, DL,TOCOPHERYL ACET, (VITAMIN E, DL, ACETATE,) 400 unit capsule Take 400 Units by mouth once daily. (Patient not taking: Reported on 09/12/2021 ) DOC-Q-LACE 100 mg capsule take 1 capsule by mouth twice a day (Patient not taking: Reported on 09/12/2021) 60 capsule 1 lamoTRIgine (LAMICTAL) 100 mg tablet Take 1 tablet by mouth once daily. (Patient not taking: Reported on 11/20/2019 ) 30 tablet 11 HYDROXYZINE HCL ORAL Take by mouth. (Patient not taking: Reported on 09/12/2021 ) No current facility-administered medications for this visit. PAST SURGICAL HISTORY Procedure Laterality Date CURETTAGE 2003 EAb at 12 weeks CYSTOSCOPY 12/27/2019 DILATION AND CURETTAGE DXAND/THER NONOBSTETRIC age 16 SAb at 5months EXTRACTION, ERUPTED TOOTH OR EXPOSED ROOT (ELEVATION AND/OR FORCEPS REMOVAL) 2007 wisdom teeth IUD INSERTION (SLOT OPERATIONS DIRECTOR DEPT)_*FL 02/24/2009 Mirena LIG/TRNSXJ FLP TUBE ABDL/VAG APPR UNI/BI 2011 Tubal ligation NOVASURE 07/13/2016 REMOVE INTRAUTERINE DEVICE 07/10/2009 Mirena SALPINGECTOMY Bilateral 12/27/2019 B/L Salpingectomy at [facility]-Dr. Elias TONSILLECTOMY PRIMARY/SECONDARY Tonsillectomy VAGINAL HYSTERECTOMY UTERUS 250 GM/< 12/27/2019 LAVH at [facility]-Dr. Elias FAMILY HISTO (more content not included)... [facility] 04-05-2023 Note HNO ID: [id number] Author: RT Millie(R) Service: ? Author Type: Welder Fitter Type: Progress Notes Filed: 04/05/2023 11:19 AM Note Text: Radiology Service Progress Note PATIENT NAME: Kai Yanes DATE OF SERVICE: April 05, 2023 TIME: 11:10 AM PATIENT IDENTITY VERIFICATION COMPLETED USING TWO (2) IDENTIFIERS: Name and Date of confirmed by patient verbally. FALL SCREENING: Has the patient had 2 falls in the last year or 1 fall with injury or currently using an Ambulatory Assistive Device (Walker, Cane, Wheelchair, Crutches, etc.)? No PATIENT GENDER DATA: Female. status: : No status: NO. PATIENT RELEVANT IMPLANT DATA REVIEWED: Yes RADIOLOGY DEPARTMENT: General X-ray: Exam(s) Completed: Chest X-Ray PERIPHERAL IV DATA: Not applicable SIGNED BY: RT Millie(R) April 05, 2023 11:10 AM [facility] 12-04-2022 Note HNO ID: [id number] Author: Dominick Carcamo PA-C Service: ? Author Type: Physician Correctional Manager Type: Progress Notes Filed: 12/04/2022 2:29 PM Note Text: Subjective HPI HPI Kai Yanes is a 47 year old female who presents today for CC of persistent cough, chest congestion, chest pressure x 3 weeks. Worse with exertion. Hx of tobacco use. BP 102/64 Pulse 62 Temp 36.2 ?C (97.2 ?F) (Tympanic) Resp 18 Wt 114.9 kg (253 lb 6.4 oz) LMP 08/08/2016 (Exact Date) SpO2 99% BMI 40.90 kg/m? ALLERGIES Allergen Reactions Morphine Shortness of Breath Seasonal Allergies ACTIVE PROBLEM LIST Tuberculin Test Reaction Tobacco Use Disorder Overweight(278.02) Other Specified Viral Warts Adjustment Disorder With Mixed Anxiety and Depressed Mood Vitamin D Deficiency Bipolar Affective (Hcc) Hypothyroidism Anxiety Depression Mass of Both Axillae Anemia Iron Deficiency Anemia Due to Chronic Blood Loss Abnormal Uterine Bleeding (Aub) Adenomyosis Axillary Mass Family History Problem Relation Age of Onset Arthritis Mother Hypertension Maternal Grandmother Diabetes Maternal Grandmother Diabetes Maternal Uncle Social History Tobacco Use Smoking status: Every Day Types: Cigars Smokeless tobacco: Never Tobacco comments: smokes 2-3 cigars daily Substance Use Topics Alcohol use: Yes Comment: Occasionally (few times a month),NOT WHILE Drug use: No ROS Objective Physical Exam ASSESSMENT/PLAN: 1. Chest pain, unspecified type - ICD9: 786.50, ICD10: R07.9 Chest pain of unclear etiology, patient with significant risk factor(s) of smoking - Referred to ED for higher level of care/full cardiac workup, given exertional nature and progressive symptoms. Pt expressed understanding and agrees. Opting out of transport via ambulance and is transporting herself. Dominick Carcamo PA-C [facility] 12-04-2022 History of Present illness Narrative Subjective HPI HPI Kai Yanes is a 47 year old female who presents today for CC of persistent cough, chest congestion, chest pressure x 3 weeks. Worse with exertion. Hx of tobacco use. BP 102/64 Pulse 62 Temp 36.2 C (97.2 F) (Tympanic) Resp 18 Wt 114.9 kg (253 lb 6.4 oz) LMP 08/08/2016 (Exact Date) SpO2 99% BMI 40.90 kg/m ALLERGIES Allergen Reactions Morphine Shortness of Breath Seasonal Allergies ACTIVE PROBLEM LIST Tuberculin Test Reaction Tobacco Use Disorder Overweight(278.02) Other Specified Viral Warts Adjustment Disorder With Mixed Anxiety and Depressed Mood Vitamin D Deficiency Bipolar Affective (Hcc) Hypothyroidism Anxiety Depression Mass of Both Axillae Anemia Iron Deficiency Anemia Due to Chronic Blood Loss Abnormal Uterine Bleeding (Aub) Adenomyosis Axillary Mass Family History Problem Relation Age of Onset Arthritis Mother Hypertension Maternal Grandmother Diabetes Maternal Grandmother Diabetes Maternal Uncle Social History Tobacco Use Smoking status: Every Day Types: Cigars Smokeless tobacco: Never Tobacco comments: smokes 2-3 cigars daily Substance Use Topics Alcohol use: Yes Comment: Occasionally (few times a month),NOT WHILE Drug use: No ROS Objective Physical Exam ASSESSMENT/PLAN: 1. Chest pain, unspecified type - ICD9: 786.50, ICD10: R07.9 Chest pain of unclear etiology, patient with significant risk factor(s) of smoking - Referred to ED for higher level of care/full cardiac workup, given exertional nature and progressive symptoms. Pt expressed understanding and agrees. Opting out of transport via ambulance and is transporting herself. Dominick Carcamo PA-C documented in this encounter [facility] 05-24-2022 History of Present illness Narrative Images from the original note were not included. Subjective HPI HPI Kai Yanes is a 47 year old female who presents today for CC of right foot pain/twisted over a step 1 hour ago. Has tried nothing for relief. Symptoms are worsened by walking. Denies history of surgery or injury to right foot. Denies numbness/tingling of right foot .Patient presents with: Pain (foot): right x 1 hour, twisted going down steps PAST MEDICAL HISTORY Diagnosis Date Anemia Anxiety Depression Encounter for insertion or removal of intrauterine contraceptive device 02/24/2009 Mirena INSERTION AND REMOVAL Tobacco use disorder age 16 Tuberculin test reaction 1999 CXR negative at [facility], and to date (through 2003) PAST SURGICAL HISTORY Procedure Laterality Date CURETTAGE 2003 EAb at 12 weeks CYSTOSCOPY 12/27/2019 DILATION & CURETTAGE DX&/THER NONOBSTETRIC age 16 SAb at 5months EXTRACTION, ERUPTED TOOTH OR EXPOSED ROOT (ELEVATION AND/OR FORCEPS REMOVAL) 2007 wisdom teeth IUD INSERTION (SLOT OPERATIONS DIRECTOR DEPT)_*FL 02/24/2009 Mirena LIG/TRNSXJ FLP TUBE ABDL/VAG APPR UNI/BI 2010 Tubal ligation NOVASURE 07/13/2016 REMOVE INTRAUTERINE DEVICE 07/10/2009 Mirena SALPINGECTOMY Bilateral 12/27/2019 B/L Salpingectomy at [facility]-Dr. Elias TONSILLECTOMY PRIMARY/SECONDARY <AGE 14 age 7 Tonsillectomy VAGINAL HYSTERECTOMY UTERUS 250 GM/< 12/27/2019 LAVH at [facility]-Dr. Elias ALLERGIES Morphine and Seasonal Allergies MEDICATIONS ibuprofen (MOTRIN) 600 mg tablet Take 1 tablet by mouth every 6 hours as needed. FOR PAIN. albuterol HFA (PROAIR HFA) 90 mcg/actuation inhaler Inhale 2 Puffs as instructed every 6 hours as needed. cholecalciferol, Vitamin D3, (VITAMIN D3) 50,000 unit cap capsule Take 1 capsule by mouth once each week. Ascorbic Acid (VITAMIN C) powd Take 1 teaspoonful by mouth once daily. cyclobenzaprine (FLEXERIL) 5 mg tablet take 1 tablet by mouth three times a day if needed Hkgfqvhwojrljhe-Kifoenwtm-SW (BROMFED DM) 2-30-10 mg/5 mL syrup Take 10 mL by mouth four times daily as needed. tolterodine ER (DETROL LA) 4 mg 24 hr capsule Take 1 capsule by mouth once daily. ferrous sulfate 325 mg (65 mg iron) tablet Take 1 tablet by mouth twice daily with meals. folic acid 400 mcg tablet Take 1 tablet by mouth once daily. fluticasone (FLONASE) 50 mcg/actuation nasal spray Use 2 Sprays in each nostril once daily. Rinse mouth after use. ibuprofen (MOTRIN) 600 mg tablet Take 1 tablet by mouth every 6 hours as needed for Pain. gabapentin (NEURONTIN) 300 mg capsule Take 1 capsule by mouth daily at bedtime for 30 days. MULTIVITAMIN ORAL Take 1 tablet by mouth once daily. VITAMIN E, DL,TOCOPHERYL ACET, (VITAMIN E, DL, ACETATE,) 400 unit capsule Take 400 Units by mouth once daily. DOC-Q-LACE 100 mg capsule take 1 capsule by mouth twice a day lamoTRIgine (LAMICTAL) 100 mg tablet Take 1 tablet by mouth once daily. HYDROXYZINE HCL ORAL Take by mouth. FAMILY HISTORY Problem Relation Age of Onset Arthritis Mother Hypertension Maternal Grandmother Diabetes Maternal Grandmother Diabetes Maternal Uncle Social History Tobacco Use Smoking status: Current Every Day Smoker Years: 15.00 Types: Cigars Smokeless tobacco: Never Used Tobacco comment: smokes 2-3 cigars daily Substance Use Topics Alcohol use: Yes Comment: Occasionally (few times a month),NOT WHILE Drug use: No ROS Objective Blood pressure 144/86, pulse 78, temperature 36.9 C (98.4 F), resp. rate 16, last menstrual period 08/08/2016, SpO2 99 %. Physical Exam Constitutional: General: She is not in acute distress. Appearance: She is not toxic-appearing or diaphoretic. HENT: Head: Normocephalic and atraumatic. Cardiovascular: Pulses: Dorsalis pedis pulses are 2+ on the right side. Posterior tibial pulses are 2+ on the right side. Pulmonary: Effort: Pulmonary effort is normal. No accessory muscle usage or respiratory distress. Musculoskeletal: Feet: Neurological: Mental Status: She is alert and oriented to person, place, and time. ASSESSMENT/PLAN: 1. Foot pain, right - ICD9: 729.5, ICD10: M79.671 -no bony abnormality noted on xray -Rest, Ice, Compression, Elevation discussed -discussed use of ibuprofen -follow up with primary care if symptoms persist/worsen in 10-14 days -splint supplied. - XR FOOT GENERAL 3V AP/LAT/OBL RIGHT Impression IMPRESSION: No Acute Fracture or dislocation. Dictated by : DAVID MARTÍNEZ MD Agrees to plan Thomas Lucas APRN.RN TELEPHONIC documented in this encounter [facility] documented as of this encounter (statuses as of 05/24/2022) [facility]07-19-2010 History of Past illness Narrative* Problem Noted Date Resolved Date Supervision of other high-risk (V23.89) 06/01/2010 10/05/2011 documented as of this encounter (statuses as of 12/04/2022) [facility]07-19-2010 History of Past illness Narrative* Problem Noted Date Diagnosed Date Resolved Date Supervision of other high-ri sk (V23.89) 06/01/2010 10/05/2011 documented as of this encounter (statuses as of 06/03/2023) [facility]-19-2010 History of Past illness Narrative* Problem Noted Date Diagnosed Date Resolved Date Supervision of other high-ri sk (V23.89) 06/01/2010 10/05/2011 documented as of this encounter (statuses as of 09/17/2023) [place] [address]-19-2010 History of Past illness Narrative* Problem Noted Date Diagnosed Date Resolved Date Supervision of other high-ri sk (V23.89) 06/01/2010 10/05/2011 documented as of this encounter (statuses as of 09/25/2023) [facility] Foot pain, right- Primary [facility] in [facility] Diagnosis Chest pain, unspecified type- Primary documented in this encounter [facility] note* Diagnosis Medication management Encounter for long-term (current) use of other medications Hypothyroidism Unspecified hypothyroidism documented in this encounter [facility] note* Diagnosis Bunion documented in this encounter [facility] note* Diagnosis Eye swelling, right- Primary Swelling or mass of eye documented in this encounter [facility] for referral (narrative)* Diagnostic Procedure Only (Urgent) - Closed Specialty Diagnoses / Procedures Referred By Contac t Referred To Contact XR IMAGING Diagnoses Foot pain, right Procedures XR FOOT GENERAL 3V AP/LAT/OBL RIGHT RADEX FOOT COMPLETE MINIMUM 3 VIEWS Thomas Lucas APRN.CNP [address] [place] [address] Xr Imaging Referral ID Status Reason Start Date Expiration Date V isits Requested Visits Authorized [id number] Closed Auto-Generate d Referral 05/24/2022 06/23/2023 1 1 [facility] for referral (narrative)* Diagnostic Procedure Only (Routine) - Pending Review Specialty Diagnoses / Procedures Referred By Contac t Referred To Contact XR IMAGING Diagnoses Bunion Procedures XR FOOT GENERAL 3V AP/LAT/OBL RIGHT RADEX FOOT COMPLETE MINIMUM 3 VIEWS Sohail Villeda [address] [place] [address] [place] [address] Referral ID Status Reason Start Date Expiration Date Visits Requested Visits Authorized [id number] Pending Review Auto-Generat ed Referral 06/06/2023 07/05/2024 1 1 [facility] for visit Narrative* Diagnostic Procedure Only (Routine) - Pending Review Specialty Diagnoses / Procedures Referred By Contac t Referred To Contact XR IMAGING Diagnoses Bunion Procedures XR FOOT GENERAL 3V AP/LAT/OBL RIGHT RADEX FOOT COMPLETE MINIMUM 3 VIEWS Sohail Villeda [address] [place] [address] [place] [address] Referral ID Status Reason Start Date Expiration Date Visits Requested Visits Authorized [id number] Pending Review Auto-Generat ed Referral 06/06/2023 07/05/2024 1 1 [facility] Advance Directives No Advanced Directives Records FoundDocuments on File Type Date Recorded Patient Bill Of Materials Clerk Expl anation Advance Directive(s) 11/01/2017 7:36 AM Advance Directive(s) 07/13/2016 6:51 AM Summary Purpose Family History No Family History Records Found Additional Source Comments Source Comments (unrecognize d section and content) In the event this informatio n is protected by the Federal Confidentiality of Alcohol and Drug Abuse Patient Records regulations: The Federal rules restrict any use of the information to criminally investigate or prosecute any alcohol or drug abuse patient.[facility] the event this information is protected by the Federal Confidentiality of Alcohol and Drug Abuse Patient Records regulations: The Federal rules restrict any use of the information to criminally investigate or prosecute any alcohol or drug abuse patient.[facility] the event this information is protected by the Federal Confidentiality of Alcohol and Drug Abuse Patient Records regulations: The Federal rules restrict any use of the information to criminally investigate or prosecute any alcohol or drug abuse patient.[facility] the event this information is protected by the Federal Confidentiality of Alcohol and Drug Abuse Patient Records regulations: The Federal rules restrict any use of the information to criminally investigate or prosecute any alcohol or drug abuse patient.[facility] the event this information is protected by the Federal Confidentiality of Alcohol and Drug Abuse Patient Records regulations: The Federal rules restrict any use of the information to criminally investigate or prosecute any alcohol or drug abuse patient.[facility] Reason for Visit (unrecogniz ed section and content) Reason Comments Cough Cough, chest congest ion and pressure x 3 weeks but worse last few days Reason Comments Mass swollen gland on angeliac k of right side of neck and right eye swelling x 1 month recurring Care Teams (unrecognized sec tion and content) [facility] Relationship Specialty Start Date End Date Kaila Ag MD [address] [place] [address] PCP - General Internal Medicine 01/01/15 [facility] Relationship Specialty Start Date End Date Kaila Ag MD [address] [place], [place] [id number] PCP - General Internal Medicine 01/01/15 [facility] Relationship Specialty Start Date End Date Kaila Ag MD [address] [place], [place] [id number] PCP - General Internal Medicine 01/01/15 [facility]oner Relationship Specialty Start Date End Date Kaila Ag MD [address] [place] [address] PCP - General Internal Medicine 01/01/15 INFORMATION SOURCE (unrecogn ized section and content) FOR RECORDS PERTAINING TO PATIENTS WHO ARE OR HAVE BEEN ENROLLED IN A CHEMICAL DEPENDENCY/SUBSTANCEABUSE PROGRAM, SOME INFORMATION MAY BE OMITTED. This clinical summary was aggregated from multiple sources. Caution should be exercised in using it in the provision of clinical care. This summary normalizes information from multiple sources, and as a consequence, information in this document may materially change the coding, format and clinical context of patient data. In addition, data may be omitted in some cases. CLINICAL DECISIONS SHOULD BE BASED ON THE PRIMARY CLINICAL RECORDS. [employer] [facility]. provides no warranty or guarantee of the accuracy or completeness of information in this document.
[2023-12-12 17:05] LABS: Absolute Lymphocyte Count 1.99 X10^3/uL (0.83-4.51); Absolute Neutrophil Count 2.4 X10^3/uL (2.0-7.7); Basophil# 0.02 X10^3/uL; Basophil% 0.4 % (0-1); Eosinophil# 0.15 X10^3/uL; Hematocrit 38.2 % (37-47); Hemoglobin 12.3 g/dL (12.0-15.0); Lymphocyte # 1.99 X10^3/ul (0.83-4.51); Mean Corp Hgb Conc 32.2 g/dL (32-36); Mean Corpuscular Hgb 28.9 pg (27.0-32.0); Mean Corpuscular Volume 89.7 fL (81-99); Mean Platelet Vol. 8.3 fl (6.2-12.0); Monocyte# 0.41 X10^3/uL; Monocyte% 8.2 % (0-10); NRBC Flagged by Analyzer 0 % (0-5); Neutrophil # 2.41 X10^3/uL (2.7-7.7); Neutrophil % 48.4 % (47-70); Platelet Count 436 K/mm3 (150-450); RBC Distribution Width CV 13.2 % (11.6-14.6); RBC Distribution Width SD 43.4 fl (35.1-43.9); Red Blood Count 4.26 M/mm3 (4.2-5.4)
[2023-12-12 17:27] LABS: Erythrocyte Sedimentation Rate 25 mm/hr (0-30)
[2023-12-12 17:46] LABS: Vitamin D,25 Hydroxy 30.2 ng/mL
[2023-12-12 17:51] LABS: ALB/GLOB Ratio 0.9 RATIO (0.9-2.4); AST(SGOT) 26 U/L (15-37); Alanine Aminotransfer ALT/SGPT 41 U/L (13-56); Albumin, Serum 3.4 g/dL (3.2-5.0); Alkaline Phosphatase 74 U/L (45-117); Anion Gap 3 (5-15); BUN 14 mg/dL (7-18); BUN/Creat Ratio 14.9 RATIO (10-20); Calcium,Total 8.6 mg/dL (8.5-10.1); Chloride 106 mmol/L (98-107); Creatinine, Serum 0.94 mg/dL (0.55-1.02); EST Glomerular Filtration Rate 68 mL/min (>60); Est Glom Filt Rate - Afr Amer 82 mL/min (>60); Globulin 3.9 g/dL (2.2-4.2); Glucose 91 mg/dL (74-106); Potassium 3.9 mmol/L (3.5-5.1); Protein, Total 7.3 g/dL (6.4-8.2); Rheumatoid Factor < 10.0 IU/mL (<15); Sodium Level 136 mmol/L (136-145); Thyroid Stim Hormone (TSH) 1.45 uIU/mL (0.358-3.74)
[2023-12-14 13:08] LABS: ANTINUCLEAR ANTIBODIES DIRECT Negative (Negative)
[2023-12-16 02:07] LABS: C1 EST Inhibitor, Functional >93 (.); Thyroid Peroxidase AB < 9 IU/mL (0-34)
== END | disposition home or self-care (01) ==
LOC: LAB 16:38
PROVIDERS: PCP Internal Medicine; Referring Provider Nurse Practitioner; Visit Provider Nurse Practitioner
DX: J30.9 Allergic rhinitis, unspecified (principal); D84.9 Immunodeficiency, unspecified; J45.50 Severe persistent asthma, uncomplicated; R06.00 Dyspnea, unspecified; J32.9 Chronic sinusitis, unspecified; L50.1 Idiopathic urticaria; T78.3XXD Angioneurotic edema, subsequent encounter; T78.09XD Anaphylactic reaction due to other food products, subsequent encounter; E07.9 Disorder of thyroid, unspecified; E55.9 Vitamin D deficiency, unspecified; Z91.038 Other insect allergy status
CPT/HCPCS: 36415; 80053; 82306; 83520; 84443; 85025; 85652; 86038; 86160; 86161; 86376; 86431

== ENCOUNTER → 2025-06-17 | Outpatient (CLI) | payer OTHER, SELFPAY ==
--- NOTE | 2025-06-17 12:39 | RAD_ITS ---
PROCEDURE: KNEE 3 VIEWS 06/17/2025 REASON FOR EXAM: PAIN TECHNIQUE: KNEE 3 VIEWS COMPARISON: None provided. RAD/Knee 3 Views IMPRESSION: No right knee joint effusion is seen. Mild right knee degenerative changes are most apparent of the patellofemoral ar ticulation, where questionable mild joint narrowing is noted. No acute fracture or dislocation is seen Reading Location: [place] [address]
== END | disposition home or self-care (01) ==
LOC: MTRAD 12:39
PROVIDERS: PCP Internal Medicine; Referring Provider Physician Assistant; Visit Provider Physician Assistant
DX: M25.561 Pain in right knee (principal)
CPT/HCPCS: 73562